=== PATIENT | female | born 1950 | race Caucasian/White ===

== ENCOUNTER 2018-06-21 10:26 | Outpatient (CLI) | payer BC, OTHER ==
--- NOTE | 2018-06-21 12:16 | RAD ---
CHEST TWO VIEWS: History: Dyspnea. Comparison: None. FINDINGS: Lungs are clear. No pneumothorax or effusion. Cardiac silhouette and mediastinal contours are within normal limits. Multiple calcified bodies project over the left lower quadrant of the abdomen. IMPRESSION: No acute intrathoracic abnormality. POS: TPC
== END 2018-06-21 10:27 | disposition home or self-care (01) ==
LOC: RAD 10:26
PROVIDERS: ATTEND Internal Medicine Critical Care Medicine
DX: R06.00 Dyspnea, unspecified (principal)
CPT/HCPCS: 71046

== ENCOUNTER 2019-05-09 09:28 | Outpatient (CLI) | payer BC ==
--- NOTE | 2019-05-09 10:13 | RAD ---
PA AND LATERAL VIEWS CHEST: Date: 05/09/2019 HISTORY: Dyspnea. FINDINGS: Comparison made with exam of 06/21/2018. The heart size is normal. The lungs are expanded without lobar consolidation, pneumothoraces, or pleu ral effusions. Mild chronic changes are stable. IMPRESSION: No acute process. POS: OFF
== END 2019-05-09 09:29 | disposition home or self-care (01) ==
LOC: RAD 09:28
PROVIDERS: ATTEND Internal Medicine Critical Care Medicine
DX: R06.00 Dyspnea, unspecified (principal)
CPT/HCPCS: 71046

== ENCOUNTER 2020-02-11 12:55 | Inpatient (IN) | payer BC, MEDICARE, OTHER ==
[2020-02-11] MEDS ORDERED: Iopamidol-370 76% 500 ML 1 ML ONE (13:37)
[2020-02-11] MEDS ORDERED: methylPREDNISolone Sod Succ/PF 125 MG/2 ML VIAL ONE (14:06)
--- NOTE | 2020-02-11 14:07 | RAD ---
Chest one view HISTORY: Dyspnea. COMPARISON: 05/09/2019. FINDINGS: Cardiac silhouette is magnified by projection. Pulmonary vasculature is unremarkable. Mediastinum is midline. Lungs remain slightly hyperinflated. Mild parenchymal scarring at the lung ba ses. No lobar consolidation or evidence of pneumothorax. Biapical pleural thickening. IMPRESSION : No active cardiopulmonary abnormalities are demonstrated.
[2020-02-11] MEDS ORDERED: Albuterol 200 PUFF (6.7GM INHALER) ONE (14:11)
[2020-02-11] MEDS ORDERED: Albuterol 200 PUFF (6.7GM INHALER) INH SCH (14:15)
[2020-02-11 14:31] LABS: #Lymphocytes 0.4 thou/uL (1.20-3.40); #Monocytes 0.4 thou/uL (0.11-0.59); #Neutrophils 4.9 thou/uL (1.40-6.50); %Basophils 0.2 % (0.0-1.0); %Eosinophils 0.1 % (0.0-10.0); %Monocytes 6.2 % (0.0-10.0); %Neutrophils 86.6 % (42.0-75.0); Hemoglobin 13.1 g/dL (12.0-16.0); Mean Corpuscular Hemoglobin 30.2 pg (27.0-31.0); Mean Corpuscular Volume 86.3 fL (78.0-98.0); Mean Platelet Volume 7.7 fL (7.4-10.4); Platelet Count 125 thou/uL (130-400); RBC Distribution Width 12.4 % (11.5-14.5); Red Blood Cell (RBC) Count 4.35 mill/uL (4.20-5.40); White Blood Cell (WBC) Count 5.6 thou/uL (4.8-10.8)
[2020-02-11 14:47] LABS: ALT (SGPT) 21 U/L (8-55); AST (SGOT) 21 U/L (5-34); Albumin 3.8 g/dL (3.4-4.8); Alkaline Phosphatase 72 U/L (40-110); Anion Gap 15 mmol/L (10-20); BUN (Urea Nitrogen) 18 mg/dL (9.8-20.1); Bilirubin, Total 0.3 mg/dL (0.2-1.2); Calc. Creatinine Clearance 0 mL/min (70-130); Calcium 8.4 mg/dL (7.8-10.44); Carbon Dioxide 20 mmol/L (23-31); Chloride 106 mmol/L (98-107); Estimated GFR-MDRD 72; Globulin 2.7 g/dL (2.4-3.5); Glucose 121 mg/dL (80-115); Potassium 3.6 mmol/L (3.5-5.1); Protein, Total 6.5 g/dL (6.0-8.3); Sodium 137 mmol/L (136-145)
[2020-02-11] MEDS ORDERED: Aspirin Chewable 81 MG TAB ONE (15:16)
--- NOTE | 2020-02-11 16:19 | CT ---
CT arteriogram chest with IV contrast and 3-D imaging HISTORY: Chest pain. Dyspnea. FINDINGS: There is good contrast opacification of the pulmonary arteries and thoracic aorta. There is calcification within the coronary arteries and other arterial structures. Prominent emphysematous changes are present at the lung apices with diffuse pulmonary hyperinflation and scattered interstitial scarring. No pleural fluid or pneumothorax. Slightly enlarged precarinal lymph node of the mediastinum is 1.5 cm greatest diameter. Subcarinal lymph node is 2.3 cm short axis diameter. Small hiatal hernia. IMPRESSION : No evidence of pulmonary embolus. Enlarged subcarinal lymph node. Cause is not evident. Emphysema. Atherosclerosis.
[2020-02-11 18:25] LABS: Troponin I Less than 0.010 ng/mL (< 0.028)
--- NOTE | 2020-02-11 18:25 | PDOC.FPRHP ---
- History of Present Illness Chief Complaint: dyspnea History of Present Illness: Pt is a 69 yo F with a PMH of COPD, GERD, RA, urge incontinence, chronic sinusitis who presents with worsening shortness of breath. She states earlier this week she was experiencing SOB and on Tuesday 02/[address] Venegas who gave her Levaquin and prednisone for a COPD exacerbation. She was compliant with her meds and she states she feels the same if not worse after finishing the course of medications. She says this does not feel like her "usual bronchitis". She also endorses the feeling of mucus or something being stuck in the back of her throat which she has been getting worked up outpatient, supposed to get an EGD. She has an occasional cough and will sometimes spit up a mucus plug but denies increased sputum production or cough. Denies CP, [place], fever, vision changes, wheezing, abdominal pain, edema. 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 ED Course: Albuterol, ASA, 500mL bolus, 125mg methylprednisolone Ddimer elevated at 1.95 CTA neg for PE, showed enlarged subcarinal lymph node, emphysema and atherosclerosis, hiatal hernia CXR negative - Allergies/Adverse Reactions Allergies Allergy/AdvReac Type Severity Reaction Status Date / Time azithromycin Allergy Verified 02/11/20 21:40 - Home Medications Medication Instructions Recorded Confirmed Type Cetirizine HCl [Zyrtec] 10 mg PO DAILY 02/11/20 02/11/20 History Fluticasone Furoate [Arnuity 1 inh PO DAILY 02/11/20 02/11/20 History Ellipta] Fluticasone/Vilanterol [Breo 1 inh PO DAILY 02/11/20 02/11/20 History Ellipta 200-25 Mcg INH] Folic Acid 1 mg PO DAILY 02/11/20 02/11/20 History Ipratropium/Albuterol Sulfate 1 puff INH QID-RT PRN 02/11/20 02/11/20 History [Combivent Respimat Inhal Panora] Lansoprazole [Prevacid 24Hr] 15 mg PO DAILY 02/11/20 02/11/20 History Methotrexate Sodium [Methotrexate] 2.5 mg PO Q7D 10/11/20 10/11/20 History - History PMHx: COPD, GERD, RA, urge incontinence, chronic sinusitis PSHx: denies FHx: sister- liver ca 2/2 cirrhosis, another sister with breast cancer Social: quit smoking 4 years ago; used to smoke 1/2-1ppd for 40 years. Denies alcohol or drug use - Review of Systems General: reports: fatigue. denies: fever/chills, weight/appetite/sleep changes, night sweats Eyes: denies: vision changes ENT: denies: nasal congestion Respiratory: reports: cough (occasional), shortness of breath, exercise intolerance Cardiovascular: denies: chest pain, edema Gastrointestinal: denies: nausea, vomiting, diarrhea, constipation, abdominal pain Genitourinary: denies: dysuria Skin: denies: rashes Neurological: reports: weakness. denies: numbness - Vital signs BP: 110/56 HR: 86 RR: 20 Tmax: 98 Pox: 93% on RA Wt: 68.49kg - Physical Exam Constitutional: NAD, awake, alert and oriented, well developed HEENT: normocephalic and atraumatic, EOMI Neck: supple Chest: no-tender to palpation Heart: RRR, normal S1/S2 (distant heart sounds), no murmurs/rubs/gallops, pulses present, no edema Lungs: no respiratory distress, good air movement, no wheezing, other (distant lung sounds) Abdomen: soft, non-tender Musculoskeletal: ROM grossly normal Neurological: no focal deficit Skin: no rash/lesions, good turgor, capillary refill <2 seconds Heme/Lymphatic: no unusual bruising or bleeding Psychiatric: normal mood and affect, good judgment and insight, intact recent and remote memory FMR H&P: Results - Labs Result Diagrams: 02/11/20 14:21 02/11/20 14:21 Lab results: WBC 5.6 thou/uL (4.8-10.8) 02/11/20 14:21 Hgb 13.1 g/dL (12.0-16.0) 02/11/20 14:21 Hct 37.5 % (36.0-47.0) 02/11/20 14:21 MCV 86.3 fL (78.0-98.0) 02/11/20 14:21 Plt Count 125 thou/uL (130-400) L 02/11/20 14:21 Neutrophils % 86.6 % (42.0-75.0) H 02/11/20 14:21 Sodium 137 mmol/L (136-145) 02/11/20 14:21 Potassium 3.6 mmol/L (3.5-5.1) 02/11/20 14:21 Chloride 106 mmol/L (98-107) 02/11/20 14:21 Carbon Dioxide 20 mmol/L (23-31) L 02/11/20 14:21 BUN 18 mg/dL (9.8-20.1) 02/11/20 14:21 Creatinine 0.80 mg/dL (0.6-1.1) 02/11/20 14:21 Glucose 121 mg/dL (80-115) H 02/11/20 14:21 Calcium 8.4 mg/dL (7.8-10.44) 02/11/20 14:21 Total Bilirubin 0.3 mg/dL (0.2-1.2) 02/11/20 14:21 AST 21 U/L (5-34) 02/11/20 14:21 ALT 21 U/L (8-55) 02/11/20 14:21 Alkaline Phosphatase 72 U/L (40-110) 02/11/20 14:21 B-Natriuretic Peptide 14.7 pg/mL (0-100) 02/11/20 14:21 Serum Total Protein 6.5 g/dL (6.0-8.3) 02/11/20 14:21 Albumin 3.8 g/dL (3.4-4.8) 02/11/20 14:21 - EKG Interpretation EKG: normal sinus. a single t wave inversion was appreciated in a lateral lead. FMR H&P: A/P - Plan #SOB 2/2 likely COPD exacerbation vs pulmonary HTN -increased work of breathing with history of COPD -failed treatment outpatient with Levaquin and steroids -CXR neg, CTA showed subcarinal lymph node, emphysema, atherosclerosis, hiatial hernia -satting well on RA -will treat with daily prednisone, albuterol q2 PRN, duonebs q4H ZHANG -work up for possible pulm HTN as cause of SOB; echo pending #GERD -aware, continue home meds #RA -aware, continue home meds #Urge incontinence -aware #Chronic sinusitis -aware, continue home meds PCP Kelly Dispo: admit to tele obs, anticipated LOS <48 hours Fluids: KVO Diet: HH DVT Ppx: Lovenox Code: DNR FMR H&P: Upper Level - Plan Date/Time: 02/11/201822 IAnam DO, have evaluated this patient and agree with findings/plan as outlined by director internal control resident. Pertinent changes/additions are listed here. 69 yo F presents with worsening FRYE. she reports noticing this starting a week ago, progressively worsening. treated for copd exac by pulm without improvement starting 5 days ago. denies dyspnea at rest, chest pain, cough or fever. no change in sputum production. does report a hx of orthopnea. no CELY or weight gain. her last copd exac was 6 mos ago which took her a while to get over, her copd is managed on ics/laba/lama. on exam she is not in acute distress, her PE is positive for distant heart and lung sounds but no wheeze, no jvd, fluid wave, or CELY. cxr significant for expanded lung david and lower lobe parenchyma scarring. labs sig for ddimer elevation. CTA neg. COPD exac is the most likely dx, will treat accordingly, currently no indication for abx. Additionally her symptoms and hx of lung dz/orthopnea could be due to a dx of pulm. htn, we will obtain echo to evaluate for this. She does not seem to be at risk for acute decompensation as her vital signs are stable at rest. she is a covid r/o 2/2 her sob. Tele obs for ELOS<48hrs. Addendum - Attending - Attending Attestation Date/Time: 02/11/20 [id number] I personally evaluated the patient and discussed the management with Dr. Mccollum I agree with the History, Examination, Assessment and Plan documented above with any addition or exceptions noted below- 69 yo F with h/o COPD, RA, GERD presents with worsening FRYE. she reports noticing this starting a week ago, progressively worsening. Seen by pulmonary and completed a course of prednisone and levaquin today without improvement in symptoms and worsening. Denies dyspnea at rest, chest pain, cough or fever. no change in sputum production. does report a hx of orthopnea. Denies any pedal edema or weight gain. PMH/PSH/Meds/SH reviewed and agree with resident's documentation. Afebrile BP 110/56 P86 RR20 93%RA Exam repeated by me and agree with resident's findings. Labs: WBC=5.6, H/H=13.3/37.5, Lnp=584, Bj=284, BUN/Cr=18/0.8, trop I<0.010 x 3, BNP=14.7, CT chest- no PE, enlarged subcarinal lymph node, emphysematous changes. A/P: 1) COPD exacerbation - Admit to medical. Duonebs q4h, continue steroids. Will check echo to evaluate for any cardiac etiologies for dyspnea. ]
[2020-02-11] MEDS ORDERED: Albuterol 200 PUFF (6.7GM INHALER) INH PRN ×3 (18:53→21:46)
[2020-02-11 20:48] LABS: Troponin I Less than 0.010 ng/mL (< 0.028)
[2020-02-11] MEDS ORDERED: Senokot S 8.6-50 MG TAB PO PRN (21:32)
[2020-02-11] MEDS ORDERED: Ondansetron PF 4 MG/2 ML Vial IVP PRN (21:32)
[2020-02-11] MEDS ORDERED: Ondansetron ODT 4 MG TAB PO PRN (21:32)
[2020-02-11] MEDS ORDERED: Acetaminophen 325 MG TAB PO PRN (21:32)
[2020-02-11 21:34] VITALS: BMI 24.4
[2020-02-11] MEDS ORDERED: Albuterol Sulfate 2.5 mg/3 ml Neb NEB PRN (21:34)
[2020-02-11] MEDS ORDERED: Non-Formulary Item 1 EACH (Ipratropium/Albuterol Sulfate [Combivent Respimat] 120 PUFF In INH PRN (22:24)
[2020-02-11] MEDS: Albuterol 200 PUFF (6.7GM INHALER) INH SCH (23:38)
[2020-02-11] MEDS: Methotrexate Sodium 2.5 MG TAB PO SCH (23:39)
[2020-02-12] MEDS: Albuterol 200 PUFF (6.7GM INHALER) INH SCH ×5 (03:21→19:36)
[2020-02-12 05:10] LABS: #Lymphocytes 0.4 thou/uL (1.20-3.40); #Monocytes 0.3 thou/uL (0.11-0.59); #Neutrophils 2.2 thou/uL (1.40-6.50); %Basophils 0.1 % (0.0-1.0); %Eosinophils 0.1 % (0.0-10.0); %Lymphocytes 14.2 % (21.0-51.0); %Monocytes 9.1 % (0.0-10.0); %Neutrophils 76.7 % (42.0-75.0); Hemoglobin 12.5 g/dL (12.0-16.0); Mean Corpuscular HGB CONC 34.5 g/dL (32.0-36.0); Mean Corpuscular Hemoglobin 29.7 pg (27.0-31.0); Mean Corpuscular Volume 86.1 fL (78.0-98.0); Mean Platelet Volume 7.4 fL (7.4-10.4); Platelet Count 131 thou/uL (130-400); RBC Distribution Width 12.3 % (11.5-14.5); Red Blood Cell (RBC) Count 4.19 mill/uL (4.20-5.40); White Blood Cell (WBC) Count 2.8 thou/uL (4.8-10.8)
[2020-02-12 05:42] LABS: ALT (SGPT) 19 U/L (8-55); AST (SGOT) 18 U/L (5-34); Albumin 3.7 g/dL (3.4-4.8); Alkaline Phosphatase 72 U/L (40-110); Anion Gap 14 mmol/L (10-20); BUN (Urea Nitrogen) 16 mg/dL (9.8-20.1); Bilirubin, Total 0.3 mg/dL (0.2-1.2); Calc. Creatinine Clearance 82 mL/min (70-130); Calcium 8.7 mg/dL (7.8-10.44); Carbon Dioxide 23 mmol/L (23-31); Cardiac Risk 3.4 (Less than 4.5); Chloride 106 mmol/L (98-107); Cholesterol 125 mg/dl (< 200 Desired); Estimated GFR-MDRD 81; Globulin 2.6 g/dL (2.4-3.5); Glucose 143 mg/dL (80-115); HDL Cholesterol 37 mg/dL (>60 Neg Risk); LDL Cholesterol, Calculated 75 mg/dL; Potassium 4.1 mmol/L (3.5-5.1); Protein, Total 6.3 g/dL (6.0-8.3); Sodium 139 mmol/L (136-145); Triglycerides 63 mg/dL (Less than 150)
[2020-02-12] MEDS: Mometasone 100 MCG/Formoterol 5 MCG 120 PUFF INHALER INH SCH ×2 (06:06→19:37)
--- NOTE | 2020-02-12 07:17 | PDOC.FM ---
- Subjective Subjective: Called to patient's room around 0730 this AM due to tachycardia. Patient experiencing associated symptoms of SOB, palpitations, anxiety, lightheaded. Initially felt some chest tightness which resolved by the time I arrived to evaluate her. She denies any past history of heart problems. Has never been diagnosed with atrial fibrillation in the past. Symptoms onset this AM after walking to the bathroom and using her albuterol and dulera inhalers. - Objective Vital Signs & Weight: Vital Signs (12 hours) Temp Pulse Resp BP Pulse Ox 02/12/20 03:47 98.5 F 90 16 130/60 91 L 02/11/20 23:25 98.0 F 74 18 114/72 93 L 02/11/20 20:10 98.0 F 82 18 108/57 L 91 L Weight Weight 68.583 kg I&O: 02/11/20 02/12/20 02/13/20 06:59 06:59 06:59 Intake Total 325 Output Total 300 Balance 25 Result Diagrams: 02/12/20 04:58 02/12/20 04:58 Phys Exam - Physical Examination anxious appearing HEENT: moist MMs Respiratory: no wheezing few bilateral crackles, mild tachypnea, SpO2 91% room air tachycardia, irregular, no murmur Gastrointestinal: soft, non-tender Musculoskeletal: no edema, pulses present Neurological: non-focal, moves all 4 limbs Psychiatric: A&O x 3 Skin: no rash Dx/Plan - Plan Plan: AFib with RVR New onset afib with RVR this morning, confirmed with EKG. Tachycardic in 150- 180s, symptomatic. Suspect respiratory disease, hypoxia as possible triggers for afib. - diltiazem 15 mg bolus - consulted cardiology, started 25 mcg digoxin - diltiazem gtt and therpeutic lovenox started by cardiology, appreciate recommendations - f/u echo when able to obtain COVID 19 Initially admitted for failed outpatient COPD exacerbation. Last tested negative one week prior to admission at her place of employment. Positive for COVID today. Likely trigger for both her COPD exacerbation and new onset afib. - placed on 2L NC during afib episode this am, titrate to goal of 94% - will check: ferritin, LDH, d-dimer, CRP, procalcitonin - switched prednisone to dexamethasone SOB 2/2 likely COPD exacerbation vs pulmonary HTN vs COVID pneumonia vs Afib Failed treatment outpatient with Levaquin and steroids. CXR neg, CTA showed subcarinal lymph node, emphysema, atherosclerosis, hiatial hernia - albuterol q2 PRN, duonebs q4H ZHANG - work up for possible pulm HTN as cause of SOB; echo pending Chronic sinusitis -aware, continue home meds PCP Kelly Dispo: inpatient pending further medical managment Fluids: KVO Diet: HH DVT Ppx: Lovenox Code: DNR
[2020-02-12 07:47] LABS: Free T4 (Free Thyroxine) 1.34 ng/dL (0.70-1.48)
[2020-02-12] MEDS ORDERED: predniSONE 20 MG TAB PO SCH (08:00)
[2020-02-12] MEDS ORDERED: Digoxin 0.5 MG/2 ML AMP SLOW IVP SCH (08:15)
[2020-02-12] MEDS: Loratadine 10 MG TAB PO SCH (08:27)
[2020-02-12] MEDS: Folic Acid 1 MG TAB PO SCH (08:27)
[2020-02-12 08:58] LABS: Troponin I 0.013 ng/mL (< 0.028)
[2020-02-12] MEDS ORDERED: Enoxaparin Sodium 40 MG/0.4 ML SYRINGE SC SCH (09:00)
[2020-02-12] MEDS ORDERED: Non-Formulary Item 1 EACH (Fluticasone Furoate [Arnuity Ellipta] 200 MCG Blst.W.Dev) PO SCH (09:00)
[2020-02-12] MEDS ORDERED: Diltiazem 125 MG in Sodium Chloride 0.9% 100 ML IVPB SCH (10:15)
[2020-02-12 11:20] LABS: SARS-CoV-2 MS2 Positive; SARS-CoV-2 N Gene Positive; SARS-CoV-2 S Gene Positive; SARS-CoV-2 by NAA DETECTED (NotDetected); SARS-CoV-2 orf1ab Positive
--- NOTE | 2020-02-12 12:15 | CON ---
DATE OF CONSULTATION: HISTORY OF PRESENT ILLNESS: Leta Arango is a 69-year-old female with history of COPD. 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 Last week, she was having increased problems with shortness of breath and saw Dr. Venegas on February 06 and was given Levaquin and prednisone. Her breathing problems continued to worsen and she came to the hospital for further treatment. This morning, she went into atrial fibrillation with fast ventricular response, rate in the 150s. She also states she had some mild chest pressure with this. She denies any previous history of palpitations. She is given diltiazem 15 mg and digoxin 0.25 mg and converted to sinus rhythm, although she continues to have intermittent runs of atrial fibrillation. PAST MEDICAL HISTORY: COPD and rheumatoid arthritis. She denies any history of hypertension, diabetes, or hypercholesterolemia. MEDICATIONS: 1. Zyrtec 10 mg daily. 2. Ellipta one puff daily. 3. Folic acid 1 mg daily. 4. Combivent inhaler one puff q.i.d. p.r.n. 5. Prevacid 15 mg daily. 6. Methotrexate 2.5 mg q.7 days. ALLERGIES: AZITHROMYCIN. SOCIAL HISTORY: She smoked one-half to one and one-half packs per day for 40 years, but stopped four years ago. She does not drink. REVIEW OF SYSTEMS: Unremarkable. PHYSICAL EXAMINATION: VITAL SIGNS: Blood pressure 130/60 and pulse of 90. Physical exam was deferred due to COVID rule out. LABORATORY DATA: EKG revealed atrial fibrillation with rate of 153 per minute with [address]-segment depression V2 through V5 with normal baseline ST segments. White count 2800, hemoglobin 12.5, hematocrit 36.1, and platelets 131,000. D-dimer 1.95. Sodium 139, potassium 4.1, chloride 106, carbon dioxide 23, BUN 16, creatinine 0.72, and glucose 143. Cholesterol 125, triglyceride 63, HDL 37, and LDL 75. TSH is low at 0.1801. However, free T4 and free T3 are normal. Troponin I is normal x4. Chest CTA revealed no evidence of pulmonary embolism. COPD and atherosclerosis. IMPRESSION: 1. New onset atrial fibrillation in the setting of probable chronic obstructive pulmonary disease exacerbation. Her CHADS-VASc score is 2 and I will start her on therapeutic Lovenox and a Cardizem drip. 2. Chronic obstructive pulmonary disease exacerbation. 3. COVID rule out. 4. Rheumatoid arthritis. 5. Former smoker. 6. Gastroesophageal reflux disease. PLAN: She was placed on Cardizem drip 5 mg/hour. Also, she will be placed on Lovenox 1 mg/kg b.i.d. due to CHADS-VASc score of 2. Also with the ST-segment depression during her tachycardia, consideration should be given to further evaluation of possible coronary artery disease in the future. Once she has ruled out COVID, echocardiogram will be performed. Job ID: [id number]
[2020-02-12] MEDS ORDERED: Dexamethasone 20 MG/5 ML VIAL SLOW IVP SCH (13:30)
[2020-02-12 13:56] LABS: Actual Bicarbonate (HCO3a) 18.5 mEq/L (22-28); Base Excess (BEa) -4.3 mEq/L (-2.0 to +3.0); CO2 Tension 27.6 mmHg (35.0-45.0); Calcium, Ionized (arterial) 1.18 mmol/L (1.12-1.30); Carboxyhemoglobin (COHb) 0.1 gm% (0.0-3.0); Hemoglobin (Hb) 12.6 g/dL (12.0-16.0); O2 Tension (PaO2), arterial 72.2 mmHg (> 80.0); pH, Arterial 7.44 (7.35-7.45)
--- NOTE | 2020-02-12 13:56 | PRG ---
DATE OF SERVICE: 02/12/2020 Ms. Arango is a pleasant 69-year-old lady, who was admitted with an exacerbation of COPD as well as COVID positivity. This morning, she went into atrial fibrillation with a rapid ventricular response. We consulted Cardiology and she is currently on a Cardizem drip. She did have some EKG changes and Cardiology has suggested further workup for possible CAD. Once her COVID has been ruled in or out, we should proceed with a stress Myoview. She is also on Lovenox, given her CHADS-VASc score of 2. Also after COVID is ruled in or out, she will undergo echocardiogram. Job ID: [id number]
[2020-02-12] MEDS ORDERED: Dexamethasone 4 mg/ml Vial SLOW IVP SCH (14:00)
[2020-02-12 14:14] LABS: Puncture Site RBA
[2020-02-12] MEDS: Enoxaparin Sodium 80 MG/0.8 ML SYRINGE SC SCH (20:43)
[2020-02-12] MEDS: Dexamethasone 4 mg/ml Vial SLOW IVP SCH (20:43)
[2020-02-13] MEDS: Albuterol 200 PUFF (6.7GM INHALER) INH SCH ×7 (00:31→23:19)
[2020-02-13 05:31] LABS: #Lymphocytes 0.5 thou/uL (1.20-3.40); #Monocytes 0.2 thou/uL (0.11-0.59); #Neutrophils 3.2 thou/uL (1.40-6.50); %Basophils 0.2 % (0.0-1.0); %Lymphocytes 12.8 % (21.0-51.0); %Monocytes 5.8 % (0.0-10.0); %Neutrophils 81.2 % (42.0-75.0); Hemoglobin 12.6 g/dL (12.0-16.0); Mean Corpuscular HGB CONC 34.6 g/dL (32.0-36.0); Mean Corpuscular Hemoglobin 29.9 pg (27.0-31.0); Mean Corpuscular Volume 86.5 fL (78.0-98.0); Platelet Count 147 thou/uL (130-400); RBC Distribution Width 12.4 % (11.5-14.5); Red Blood Cell (RBC) Count 4.21 mill/uL (4.20-5.40); White Blood Cell (WBC) Count 3.9 thou/uL (4.8-10.8)
[2020-02-13 05:37] LABS: INR-International Normal Ratio 0.9; PTT 28.6 sec (22.9-36.1); Prothrombin Time 12.2 sec (12.0-14.7)
[2020-02-13 05:38] LABS: D-Dimer Test 0.99 *mcg/mL (0.27-0.43)
[2020-02-13 05:50] LABS: ALT (SGPT) 27 U/L (8-55); AST (SGOT) 26 U/L (5-34); Albumin 3.6 g/dL (3.4-4.8); Alkaline Phosphatase 72 U/L (40-110); Anion Gap 15 mmol/L (10-20); BUN (Urea Nitrogen) 16 mg/dL (9.8-20.1); Bilirubin, Total 0.3 mg/dL (0.2-1.2); CRP (Inflammatory) 3.46 mg/dL (= or < 0.5); Calc. Creatinine Clearance 83 mL/min (70-130); Calcium 8.6 mg/dL (7.8-10.44); Carbon Dioxide 20 mmol/L (23-31); Chloride 106 mmol/L (98-107); Estimated GFR-MDRD 82; Globulin 2.7 g/dL (2.4-3.5); Glucose 159 mg/dL (80-115); Potassium 4.1 mmol/L (3.5-5.1); Protein, Total 6.3 g/dL (6.0-8.3); Sodium 137 mmol/L (136-145)
--- NOTE | 2020-02-13 06:27 | PDOC.FM ---
- Subjective Subjective: Patient was resting comfortably in bed, finishing her breakfast, at the time of evaluation. She denied any acute overnight events, particularly with regard to chest pain, palpitations, SOB, N/V or worsening cough. - Objective Vital Signs & Weight: Vital Signs (12 hours) Temp Pulse Resp BP Pulse Ox 02/13/20 04:40 98.0 F 66 18 91/53 L 96 02/13/20 01:08 98.8 F 76 18 117/56 L 94 L 02/12/20 21:00 98.6 F 73 20 107/59 L 94 L Weight Weight 68.583 kg I&O: 02/11/20 02/12/20 02/13/20 06:59 06:59 06:59 Intake Total 325 Output Total 300 500 Balance 25 -500 Result Diagrams: 02/13/20 04:49 02/13/20 04:49 Phys Exam - Physical Examination Constitutional: NAD HEENT: moist MMs, oral pharynx no lesions Neck: supple, full ROM Respiratory: no wheezing, no rales, no rhonchi, clear to auscultation bilateral Cardiovascular: RRR, no significant murmur, no rub Gastrointestinal: soft, non-tender, no distention, positive bowel sounds Musculoskeletal: no edema, pulses present Neurological: non-focal, moves all 4 limbs Psychiatric: normal affect Dx/Plan (1) COVID-19 Code(s): U07.1 - COVID-19 Status: Acute (2) COPD (chronic obstructive pulmonary disease) Status: Acute (3) Rheumatoid arthritis Code(s): M06.9 - RHEUMATOID ARTHRITIS, UNSPECIFIED Status: Acute (4) GERD (gastroesophageal reflux disease) Code(s): K21.9 - GASTRO-ESOPHAGEAL REFLUX DISEASE WITHOUT ESOPHAGITIS Status: Acute (5) A-fib Code(s): I48.91 - UNSPECIFIED ATRIAL FIBRILLATION Status: Acute - Plan Plan: Patient is a 69 y/o female with a PMH significant for COPD who presented to the hospital for evaluation of SOB. 1. SOB 2/2 COPD Exacerbation vs Pulmonary HTN vs COVID Pneumonia vs New-Onset A- Fib -Symptoms present for ~1W - failed outpatient treatment of Levofloxacin and steroids -VSS w/o new O2 requirement -CXR: NAF -CTA: Subcarinal LAD, Emphysema, Atherosclerosis, Hiatial Hernia -Previously on Prednisone - transitioned to Dexamethasone following COVID(+) -Duonebs Q4H ZHANG, Albuterol Q2H PRN -Echo: Pending 2. COVID(+) -Possible trigger for #1 and #3 -D-Dimer: 1.95 > 0.99 -Ferritin: 362 -LDH: 289 -CRP: 3.46 -Procal: 0.03 -Will monitor vital signs closely due to multiple high-risk comorbidities -See #1 3. A-Fib w/ RVR -New-onset on 02/11 - initially tachycardic in the 150-180s, s/p Diltiazem 15 mg bolus -Cardiology: Consulted, recommended Digoxin 25 mcg x1, Diltiazem gtt and Th. Lovenox -Echo: Pending 4. Rheumatoid Arthritis -Will continue home medication regimen 5. Chronic Sinusitis -Will continue home medication regimen 6. GERD -Will continue home medication regimen Code: DNR PCP Jay ([facility]) Diet: Heart Healthy w/ Low Sodium Activity: Ad marii VTE PPx: Th. Lovenox GI PPx: Protonix Dispo: Patient is currently stable and admitted to the Telemetry Floor for ongoing work-up of SOB. Etiology of patient's current symptoms are likely multi- factorial. Will continue rate control for New-Onset A-Fib w/ RVR as per above and coordinate closely with Cardiology - Echo may be delayed by patient's COVID(+) status. Will otherwise continue steroid regimen and respiratory support as per above. Expected LOS > 48H.
[2020-02-13] MEDS: Mometasone 100 MCG/Formoterol 5 MCG 120 PUFF INHALER INH SCH ×2 (06:39→17:38)
[2020-02-13] MEDS: Dexamethasone 4 mg/ml Vial SLOW IVP SCH ×2 (07:52→19:46)
[2020-02-13] MEDS: Enoxaparin Sodium 80 MG/0.8 ML SYRINGE SC SCH (07:53)
[2020-02-13] MEDS: Folic Acid 1 MG TAB PO SCH (07:53)
[2020-02-13] MEDS: Loratadine 10 MG TAB PO SCH (07:53)
--- NOTE | 2020-02-13 09:03 | EKG ---
Test Reason : Blood Pressure : / mmHG Vent. Rate : 153 BPM Atrial Rate : 107 BPM P-R Int : 000 ms QRS Dur : 080 ms QT Int : 280 ms P-R-T Axes : 000 021 223 degrees QTc Int : 447 ms Atrial fibrillation with rapid ventricular response Posterior infarct , age undetermined Marked ST abnormality, possible inferior subendocardial injury Abnormal ECG When compared with ECG of 11-FEB-2020 14:36, (Unconfirmed) Atrial fibrillation has replaced Sinus rhythm Vent. rate has increased BY [address] now depressed in Lateral leads T wave inversion now evident in Lateral leads Confirmed by DR. Placido MEANS ([id number]) on 02/13/2020 9:03:39 AM Referred By: REHG Confirmed By:DR. Placido MEANS
--- NOTE | 2020-02-13 14:05 | PRG ---
DATE OF SERVICE: 02/13/2020 I have reviewed the daily note of Dr. Thien Whitfield and agree with his assessment and plan. Job ID: [id number]
[2020-02-13] MEDS: Apixaban 5 MG TAB PO SCH (19:46)
[2020-02-14] MEDS: Albuterol 200 PUFF (6.7GM INHALER) INH SCH ×6 (02:42→22:30)
--- NOTE | 2020-02-14 05:50 | PDOC.FM ---
- Subjective Subjective: Patient was resting comfortably in bed at the time of evaluation. Patient denied any acute overnight events, but did endorse moderate FRYE that resolved with rest. Patient denied any chest pain, palpitations, N/V or ABD Pain. Per review of patient's rhythm strip, patient did not have any repeat episode of A-Fib w/ RVR. - Objective Vital Signs & Weight: Vital Signs (12 hours) Temp Pulse Resp BP Pulse Ox 02/14/20 05:07 93 L 02/14/20 04:16 97.9 F 71 22 H 129/61 93 L 02/13/20 23:19 97.9 F 79 24 H 132/76 94 L 02/13/20 19:46 98.4 F 77 20 113/64 94 L Weight Weight 68.583 kg I&O: 02/12/20 02/13/20 02/14/20 06:59 06:59 06:59 Intake Total 325 1470 Output Total 300 500 800 Balance 25 -500 670 Result Diagrams: 02/14/20 04:59 02/14/20 04:59 Phys Exam - Physical Examination Constitutional: NAD HEENT: moist MMs, oral pharynx no lesions Neck: supple, full ROM Respiratory: no wheezing, no rales, no rhonchi, clear to auscultation bilateral Cardiovascular: RRR, no significant murmur, no rub Gastrointestinal: soft, non-tender, no distention, positive bowel sounds Musculoskeletal: no edema, pulses present Neurological: non-focal, moves all 4 limbs Psychiatric: normal affect Skin: no rash Dx/Plan (1) COVID-19 Code(s): U07.1 - COVID-19 Status: Acute (2) COPD (chronic obstructive pulmonary disease) Status: Acute (3) Rheumatoid arthritis Code(s): M06.9 - RHEUMATOID ARTHRITIS, UNSPECIFIED Status: Acute (4) GERD (gastroesophageal reflux disease) Code(s): K21.9 - GASTRO-ESOPHAGEAL REFLUX DISEASE WITHOUT ESOPHAGITIS Status: Acute (5) A-fib Code(s): I48.91 - UNSPECIFIED ATRIAL FIBRILLATION Status: Acute - Plan Plan: Patient is a 69 y/o female with a PMH significant for COPD who presented to the hospital for evaluation of SOB. 1. SOB 2/2 COPD Exacerbation vs Pulmonary HTN vs COVID Pneumonia vs New-Onset A- Fib -Symptoms present for ~1W - failed outpatient treatment of Levofloxacin and steroids -VSS w/o new O2 requirement -CXR: NAF -CTA: Subcarinal LAD, Emphysema, Atherosclerosis, Hiatial Hernia -Previously on Prednisone - transitioned to Dexamethasone following COVID(+) -Duonebs Q4H ZHANG, Albuterol Q2H PRN -Will receive Echo as an outpatient 2. COVID(+) -Possible trigger for #1 and #3 -D-Dimer: 1.95 > 0.99 -Ferritin: 362 -LDH: 289 -CRP: 3.46 -Procal: 0.03 -Will monitor vital signs closely due to multiple high-risk comorbidities -See #1 3. A-Fib w/ RVR -New-onset on 02/11 - initially tachycardic in the 150-180s, s/p Diltiazem 15 mg bolus -Cardiology: Consulted, recommended Digoxin 25 mcg x1, Diltiazem gtt and Th. Lovenox - transitioned to PO Diltiazem and Apixaban -Will receive Echo as an outpatient 4. Rheumatoid Arthritis -Will continue home medication regimen 5. Chronic Sinusitis -Will continue home medication regimen 6. GERD -Will continue home medication regimen Code: DNR PCP Jay ([facility]) Diet: Heart Healthy w/ Low Sodium Activity: Ad marii VTE PPx: Th. Lovenox GI PPx: Protonix Dispo: Patient is currently stable and admitted to the Telemetry Floor for ongoing work-up of SOB. Etiology of patient's current symptoms are likely multi- factorial. Will continue rate control for New-Onset A-Fib w/ RVR as per above and coordinate closely with Cardiology for hopeful DC this afternoon. Will otherwise continue steroid regimen and respiratory support as per above until DC. Expected LOS < 24H.
[2020-02-14 06:11] LABS: #Lymphocytes 0.6 thou/uL (1.20-3.40); #Monocytes 0.3 thou/uL (0.11-0.59); #Neutrophils 3.3 thou/uL (1.40-6.50); %Basophils 0.2 % (0.0-1.0); %Eosinophils 0.3 % (0.0-10.0); %Lymphocytes 13.1 % (21.0-51.0); %Monocytes 6.7 % (0.0-10.0); %Neutrophils 79.6 % (42.0-75.0); Mean Corpuscular HGB CONC 34.3 g/dL (32.0-36.0); Mean Corpuscular Hemoglobin 29.2 pg (27.0-31.0); Mean Corpuscular Volume 85.2 fL (78.0-98.0); Mean Platelet Volume 8.1 fL (7.4-10.4); Platelet Count 157 thou/uL (130-400); RBC Distribution Width 12.3 % (11.5-14.5); Red Blood Cell (RBC) Count 4.44 mill/uL (4.20-5.40); White Blood Cell (WBC) Count 4.2 thou/uL (4.8-10.8)
[2020-02-14 06:36] LABS: ALT (SGPT) 42 U/L (8-55); AST (SGOT) 29 U/L (5-34); Albumin 3.7 g/dL (3.4-4.8); Alkaline Phosphatase 79 U/L (40-110); Anion Gap 10 mmol/L (10-20); BUN (Urea Nitrogen) 18 mg/dL (9.8-20.1); Bilirubin, Total 0.4 mg/dL (0.2-1.2); Calc. Creatinine Clearance 80 mL/min (70-130); Calcium 8.7 mg/dL (7.8-10.44); Carbon Dioxide 26 mmol/L (23-31); Chloride 105 mmol/L (98-107); Estimated GFR-MDRD 78; Globulin 2.8 g/dL (2.4-3.5); Glucose 170 mg/dL (80-115); Potassium 4.1 mmol/L (3.5-5.1); Protein, Total 6.5 g/dL (6.0-8.3); Sodium 137 mmol/L (136-145)
[2020-02-14] MEDS: Mometasone 100 MCG/Formoterol 5 MCG 120 PUFF INHALER INH SCH ×2 (06:49→18:30)
[2020-02-14] MEDS: Dexamethasone 4 mg/ml Vial SLOW IVP SCH ×2 (08:38→20:03)
[2020-02-14] MEDS: Loratadine 10 MG TAB PO SCH (08:39)
[2020-02-14] MEDS: Apixaban 5 MG TAB PO SCH ×2 (08:39→20:03)
[2020-02-14] MEDS: Folic Acid 1 MG TAB PO SCH (08:39)
--- NOTE | 2020-02-14 13:52 | PRG ---
DATE OF SERVICE: 02/14/2020 I have examined the patient and discussed the case with Dr. Thien Whitfield. I have also read his note and agree with his assessment plan. Ms. Arango is resting comfortably in bed, in no distress. She is currently being treated for a COPD exacerbation, COVID pneumonia, atrial fibrillation with RVR, which is currently quiescent. She has been transitioned to p.o. medications for her atrial fib. Job ID: [id number]
[2020-02-15] MEDS: Albuterol 200 PUFF (6.7GM INHALER) INH SCH ×3 (02:30→10:45)
[2020-02-15 05:24] LABS: #Lymphocytes 0.7 thou/uL (1.20-3.40); #Monocytes 0.3 thou/uL (0.11-0.59); #Neutrophils 5.4 thou/uL (1.40-6.50); %Basophils 0.5 % (0.0-1.0); %Eosinophils 0.2 % (0.0-10.0); %Lymphocytes 11.1 % (21.0-51.0); %Monocytes 5.2 % (0.0-10.0); Hemoglobin 13.2 g/dL (12.0-16.0); Mean Corpuscular HGB CONC 34.7 g/dL (32.0-36.0); Mean Corpuscular Hemoglobin 29.3 pg (27.0-31.0); Mean Corpuscular Volume 84.4 fL (78.0-98.0); Mean Platelet Volume 7.5 fL (7.4-10.4); Platelet Count 183 thou/uL (130-400); RBC Distribution Width 12.3 % (11.5-14.5); White Blood Cell (WBC) Count 6.5 thou/uL (4.8-10.8)
--- NOTE | 2020-02-15 05:35 | PDOC.FM ---
- Subjective Subjective: Patient was resting in bed at the time of evaluation. She continued to require supplemental O2, and complained of extreme SOB with exertion, but was otherwise stable at rest. - Objective Vital Signs & Weight: Vital Signs (12 hours) Temp Pulse Resp BP Pulse Ox 02/15/20 05:00 98.1 F 62 18 125/67 98 02/14/20 20:00 97.9 F 71 18 138/70 97 Weight Weight 68.583 kg I&O: 02/13/20 02/14/20 02/15/20 06:59 06:59 06:59 Intake Total 2030 251 Output Total 500 1400 1000 Balance -500 197 -739 Result Diagrams: 02/15/20 05:08 02/15/20 05:08 Phys Exam - Physical Examination Constitutional: NAD HEENT: moist MMs, oral pharynx no lesions Neck: supple, full ROM Respiratory: no wheezing, no rales, no rhonchi, clear to auscultation bilateral Mild tachypnea w/ 2L O2 via Nasal Cannula Cardiovascular: RRR, no significant murmur, no rub Gastrointestinal: soft, non-tender, no distention, positive bowel sounds Musculoskeletal: no edema, pulses present Neurological: non-focal, moves all 4 limbs Psychiatric: normal affect Skin: no rash Dx/Plan (1) COVID-19 Code(s): U07.1 - COVID-19 Status: Acute (2) COPD (chronic obstructive pulmonary disease) Status: Acute (3) Rheumatoid arthritis Code(s): M06.9 - RHEUMATOID ARTHRITIS, UNSPECIFIED Status: Acute (4) GERD (gastroesophageal reflux disease) Code(s): K21.9 - GASTRO-ESOPHAGEAL REFLUX DISEASE WITHOUT ESOPHAGITIS Status: Acute (5) A-fib Code(s): I48.91 - UNSPECIFIED ATRIAL FIBRILLATION Status: Acute - Plan Plan: Patient is a 69 y/o female with a PMH significant for COPD who presented to the hospital for evaluation of SOB. 1. SOB 2/2 COPD Exacerbation vs Pulmonary HTN vs COVID Pneumonia vs New-Onset A- Fib -Symptoms present for ~1W - failed outpatient treatment of Levofloxacin and steroids -VSS although patient has a new O2 requirement of 2L via Nasal Cannula -CXR: NAF -CTA: Subcarinal LAD, Emphysema, Atherosclerosis, Hiatial Hernia -Previously on Prednisone - transitioned to Dexamethasone following COVID(+) -Dulera BID ZHANG, Albuterol Q2H PRN -Will receive Echo, Stress Test as an outpatient 2. COVID(+) -Possible trigger for #1 and #3 -D-Dimer: 1.95 > 0.99 -Ferritin: 362 -LDH: 289 -CRP: 3.46 -Procal: 0.03 -Will monitor vital signs closely due to multiple high-risk comorbidities -See #1 3. A-Fib w/ RVR -New-onset on 02/11 - initially tachycardic in the 150-180s, s/p Diltiazem 15 mg bolus -Cardiology: Consulted, recommended Digoxin 25 mcg x1, Diltiazem gtt and Th. Lovenox - transitioned to PO Diltiazem and Apixaban -Will receive Echo, Stress Test as an outpatient 4. Rheumatoid Arthritis -Will continue home medication regimen 5. Chronic Sinusitis -Will continue home medication regimen 6. GERD -Will continue home medication regimen Code: DNR PCP Jay ([facility]) Diet: Heart Healthy w/ Low Sodium Activity: Ad marii VTE PPx: Th. Lovenox GI PPx: Protonix Dispo: Patient is currently stable and admitted to the Telemetry Floor for ongoing treatment of COVID-19 superimposed on COPD Exacerbation. Will continue rate control for New-Onset A-Fib w/ RVR as per above and coordinate closely with Cardiology. Due to patient's continued need for supplemental O2, DC appears unlikely - will titrate O2 as tolerated and continue with steroids and Albuterol. Will contact RT to investigate supplementation with Tiotropium. Expected LOS > 24H.
[2020-02-15 06:03] LABS: ALT (SGPT) 76 U/L (8-55); AST (SGOT) 36 U/L (5-34); Albumin 3.8 g/dL (3.4-4.8); Alkaline Phosphatase 85 U/L (40-110); Anion Gap 12 mmol/L (10-20); BUN (Urea Nitrogen) 22 mg/dL (9.8-20.1); Bilirubin, Total 0.4 mg/dL (0.2-1.2); Calc. Creatinine Clearance 82 mL/min (70-130); Calcium 8.8 mg/dL (7.8-10.44); Carbon Dioxide 24 mmol/L (23-31); Chloride 104 mmol/L (98-107); Estimated GFR-MDRD 81; Globulin 2.9 g/dL (2.4-3.5); Glucose 168 mg/dL (80-115); Potassium 4.2 mmol/L (3.5-5.1); Protein, Total 6.7 g/dL (6.0-8.3); Sodium 136 mmol/L (136-145)
[2020-02-15] MEDS: Mometasone 100 MCG/Formoterol 5 MCG 120 PUFF INHALER INH SCH (06:30)
[2020-02-15] MEDS: Dexamethasone 4 mg/ml Vial SLOW IVP SCH ×2 (07:57→20:00)
[2020-02-15] MEDS: Folic Acid 1 MG TAB PO SCH (07:57)
[2020-02-15] MEDS: Loratadine 10 MG TAB PO SCH (07:57)
[2020-02-15] MEDS: Apixaban 5 MG TAB PO SCH ×2 (07:57→20:00)
--- NOTE | 2020-02-15 14:27 | PRG ---
DATE OF SERVICE: 02/15/2020 Ms. Leta Arango is still being treated for COVID and COPD exacerbation likely secondary to COVID. She remains clinically stable without great improvement for the last several days. In fact, her oxygen needs has been slightly increased. We may recheck with ID regarding further recommendations, but for now, we will continue to give supportive care and O2. Job ID: [id number]
[2020-02-15] MEDS ORDERED: REMDESIVIR (EUA) 100 MG in Sodium Chloride 0.9% 250 ML 230 ML IV SCH (16:00)
[2020-02-15] MEDS: Ipratropium/Albuterol Sulfate 4 GM AER IH SCH ×2 (16:00→20:00)
[2020-02-15] MEDS ORDERED: REMDESIVIR (EUA) 200 MG in Sodium Chloride 0.9% 250 ML 210 ML IV SCH (16:00)
[2020-02-15] MEDS ORDERED: Mometasone 200 MCG/Formoterol 5 MCG 120 PUFF INHALER INH SCH (18:30)
[2020-02-15] MEDS: Mometasone 200 MCG/Formoterol 5 MCG 120 PUFF INHALER INH SCH (19:47)
--- NOTE | 2020-02-15 22:17 | CON ---
DATE OF CONSULTATION: 02/15/2020 REASON FOR CONSULTATION: COVID pneumonia. HISTORY OF PRESENT ILLNESS: A 69-year-old patient of Dr. Venegas with a history of COPD and rheumatoid arthritis, who has been sick with worsening shortness of breath for the past 7 days approximately, treated with steroids and Levaquin without improvement and had a negative COVID test though on Wednesday. Because of persistence of symptoms, she came to the emergency room. On arrival, temperature 97.6, O2 saturation 92 on room air. Diminished breath sounds, but no crackles or wheezing. Heart exam normal. Abdomen soft. Neuro examination nonfocal. This time, the COVID PCR was positive. This is a week after the 1st one. She is now feeling dyspneic at rest. Denies headaches. No diarrhea. No vomiting. Loss of smell. No genitourinary symptoms. No joint symptoms. No neurological symptoms. PAST MEDICAL HISTORY: Includes COPD, rheumatoid arthritis. PAST SURGICAL HISTORY: Tubal ligation. ALLERGIES: AZITHROMYCIN. MEDICATIONS: Had been on: 1. Methotrexate. 2. Folic acid. 3. Combivent. 4. Ascensia. 5. Arnuity Ellipta inhaler. 6. Pantoprazole. 7. Zyrtec. 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 Quit smoking 2 years ago. CURRENT MEDICATIONS: She is receivin. Decadron. 2. Eliquis. 3. Methotrexate. 4. Remdesivir. 5. She is going to get convalescent plasma. PHYSICAL EXAMINATION: VITAL SIGNS: T-max 98, BP 120/70, heart rate 82, respiratory rate 22, O2 saturation 94 with 2 L, increased to 3.5 L and it went up to 96. GENERAL: She appears apprehensive, tachypneic. SKIN: Normal. She has a peripheral IV access. She is voiding in the toilet. No lymphadenopathy. No jugular vein distention. LUNGS: With a few scattered inspiratory crackles. No wheezing. HEART: S1, S2. Regular rate. No S3 or S4. ABDOMEN: Soft. Not distended or tender. No ascites. No bladder distention. EXTREMITIES: No joint inflammatory activity. No edema. Moves extremities equally. Pulses 1+ in dorsalis pedis. NEUROLOGIC: Cognitive function appears to be intact. LABORATORY DATA: White cell count is 6.5, hemoglobin 13, platelets 183 with 83% neutrophils. INR was 0.9. A pH of 7.44, pCO2 27, PO2 72. Sodium 136, creatinine 0.72, GFR 81, AST 36, ALT 76, alkaline phosphatase 85. COVID positive. IMAGING STUDIES: Chest x-ray and the CT angio did not show any actual infiltrates. ASSESSMENT: 1. Chronic obstructive pulmonary disease. 2. Rheumatoid arthritis. 3. Coronavirus disease pneumonia with O2 requirement and tachypnea. PLAN: We will go ahead and continue Decadron, remdesivir, and transfuse convalescent plasma. Monitor inflammatory markers daily. Job ID: [id number]
[2020-02-16 05:17] LABS: ALT (SGPT) 74 U/L (8-55); AST (SGOT) 23 U/L (5-34); Albumin 3.6 g/dL (3.4-4.8); Alkaline Phosphatase 83 U/L (40-110); Bilirubin, Direct 0.2 mg/dL (0.1-0.3); Bilirubin, Total 0.4 mg/dL (0.2-1.2); Protein, Total 6.5 g/dL (6.0-8.3)
[2020-02-16] MEDS: Mometasone 200 MCG/Formoterol 5 MCG 120 PUFF INHALER INH SCH ×2 (06:02→18:36)
[2020-02-16] MEDS: Ipratropium/Albuterol Sulfate 4 GM AER IH SCH ×4 (06:02→21:36)
--- NOTE | 2020-02-16 06:13 | PDOC.FM ---
- Subjective Subjective: Patient was resting in bed at the time of evaluation, finishing her breafast. Patient continues to endorse SOB and FRYE, but otherwise has no significant complaints. Per chart review, patient's supplemental O2 requirement has increased from 2L via Nasal Cannula to 3L via Nasal Cannula. - Objective Vital Signs & Weight: Vital Signs (12 hours) Temp Pulse Resp BP Pulse Ox 02/16/20 04:00 98.0 F 63 19 124/61 97 02/15/20 23:38 62 20 128/70 96 02/15/20 20:08 98.9 F 70 22 H 124/66 97 Weight Weight 68.583 kg I&O: 02/14/20 02/15/20 02/16/20 06:59 06:59 06:59 Intake Total 2030 251 970 Output Total 1400 1000 1350 Balance 061 -739 -758 Result Diagrams: 02/15/20 05:08 02/15/20 05:08 Phys Exam - Physical Examination Constitutional: NAD Mild tachypnea HEENT: moist MMs, oral pharynx no lesions Neck: supple, full ROM Respiratory: no wheezing, no rales, no rhonchi, clear to auscultation bilateral Mild tachypnea Cardiovascular: RRR, no significant murmur, no rub Gastrointestinal: soft, non-tender, no distention, positive bowel sounds Musculoskeletal: no edema, pulses present Neurological: non-focal, moves all 4 limbs Psychiatric: normal affect Skin: no rash Dx/Plan (1) COVID-19 Code(s): U07.1 - COVID-19 Status: Acute (2) COPD (chronic obstructive pulmonary disease) Status: Acute (3) Rheumatoid arthritis Code(s): M06.9 - RHEUMATOID ARTHRITIS, UNSPECIFIED Status: Acute (4) GERD (gastroesophageal reflux disease) Code(s): K21.9 - GASTRO-ESOPHAGEAL REFLUX DISEASE WITHOUT ESOPHAGITIS Status: Acute (5) A-fib Code(s): I48.91 - UNSPECIFIED ATRIAL FIBRILLATION Status: Acute - Plan Plan: Patient is a 69 y/o female with a PMH significant for COPD who presented to the hospital for evaluation of SOB. 1. SOB 2/2 COPD Exacerbation vs Pulmonary HTN vs COVID Pneumonia vs New-Onset A- Fib -Symptoms present for ~1W - failed outpatient treatment of Levofloxacin and steroids -VSS although patient has a new O2 requirement of 3L via Nasal Cannula -CXR: NAF -CTA: Subcarinal LAD, Emphysema, Atherosclerosis, Hiatial Hernia -Previously on Prednisone - transitioned to Dexamethasone following COVID(+) -Dulera BID ZHANG, Combivent ZHANG, Albuterol Q2H PRN -Will receive Echo, Stress Test as an outpatient 2. COVID(+) -Possible trigger for #1 and #3 -D-Dimer: 1.95 > 0.99 -Ferritin: 362 -LDH: 289 -CRP: 3.46 -Procal: 0.03 -Will monitor vital signs closely due to multiple high-risk comorbidities -Dr. Garcia (ID): Consulted - recommended Remdesivir (02/14) and Convalescent Plasma - will confirm Plasma administration today -See #1 3. A-Fib w/ RVR -New-onset on 02/11 - initially tachycardic in the 150-180s, s/p Diltiazem 15 mg bolus -Cardiology: Consulted, recommended Digoxin 25 mcg x1, Diltiazem gtt and Th. Lovenox - transitioned to PO Diltiazem and Apixaban -Will receive Echo, Stress Test as an outpatient 4. Rheumatoid Arthritis -Will continue home medication regimen 5. Chronic Sinusitis -Will continue home medication regimen 6. GERD -Will continue home medication regimen Code: DNR PCP Jay ([facility]) Diet: Heart Healthy w/ Low Sodium Activity: Ad marii VTE PPx: Th. Lovenox GI PPx: Protonix Dispo: Patient is currently stable and admitted to the Telemetry Floor for jaiden oing treatment of COVID-19 superimposed on COPD Exacerbation. Will continue rate control for New-Onset A-Fib w/ RVR as per above and coordinate closely with Cardiology. Due to patient's continued need for supplemental O2, DC appears unlikely - will titrate O2 as tolerated and continue with steroids and Remdesivir, as well as home COPD regimen or equivalent as per above. Expected LOS > 48H.
[2020-02-16] MEDS: Apixaban 5 MG TAB PO SCH ×2 (08:20→21:36)
[2020-02-16] MEDS: Loratadine 10 MG TAB PO SCH (08:20)
[2020-02-16] MEDS: Dexamethasone 4 mg/ml Vial SLOW IVP SCH ×2 (08:21→21:36)
[2020-02-16] MEDS: Folic Acid 1 MG TAB PO SCH (08:21)
--- NOTE | 2020-02-16 11:57 | PRG ---
DATE OF SERVICE: 02/16/2020 Because Ms. Arango was not improving as rapidly felt we asked Dr. Garcia to consult on her. He stated we should go ahead and continue with the Decadron and give her some convalescent plasma. We appreciate input from Dr. Garcia and we will proceed with the plan. Job ID: [id number]
[2020-02-16] MEDS: REMDESIVIR (EUA) 100 MG in Sodium Chloride 0.9% 250 ML 230 ML IV SCH (16:52)
--- NOTE | 2020-02-17 05:25 | PDOC.FM ---
- Subjective Subjective: Patient was resting comfortably in bed at the time of evaluation. Patient denied any acute overnight events, and thought that her respiratory status had been improving, but noted that she still experienced somewhat severe FRYE when ambulating to her bedside commode. - Objective Vital Signs & Weight: Vital Signs (12 hours) Temp Pulse Resp BP Pulse Ox 02/17/20 05:00 97.8 F 61 16 120/68 98 02/16/20 23:38 97.6 F 71 16 129/70 98 02/16/20 21:30 97.6 F 72 18 139/71 91 L Weight Weight 68.583 kg Most Recent Monitor Data Heart Rate from ECG 72 I&O: 02/15/20 02/16/20 02/17/20 06:59 06:59 06:59 Intake Total 769 846 6746 Output Total 1000 1350 1150 Balance -200 -046 70 Result Diagrams: 02/15/20 05:08 02/15/20 05:08 Phys Exam - Physical Examination Constitutional: NAD HEENT: moist MMs, oral pharynx no lesions Neck: supple, full ROM Respiratory: no wheezing, no rales, no rhonchi, clear to auscultation bilateral O2 @ 3L via Nasal Cannula Cardiovascular: RRR, no significant murmur, no rub Gastrointestinal: soft, non-tender, no distention, positive bowel sounds Musculoskeletal: no edema, pulses present Neurological: non-focal, moves all 4 limbs Psychiatric: normal affect Skin: no rash Dx/Plan (1) COVID-19 Code(s): U07.1 - COVID-19 Status: Acute (2) COPD (chronic obstructive pulmonary disease) Status: Acute (3) Rheumatoid arthritis Code(s): M06.9 - RHEUMATOID ARTHRITIS, UNSPECIFIED Status: Acute (4) GERD (gastroesophageal reflux disease) Code(s): K21.9 - GASTRO-ESOPHAGEAL REFLUX DISEASE WITHOUT ESOPHAGITIS Status: Acute (5) A-fib Code(s): I48.91 - UNSPECIFIED ATRIAL FIBRILLATION Status: Acute - Plan Plan: Patient is a 69 y/o female with a PMH significant for COPD who presented to the hospital for evaluation of SOB. 1. SOB 2/2 COPD Exacerbation vs Pulmonary HTN vs COVID Pneumonia vs New-Onset A- Fib -Symptoms present for ~1W - failed outpatient treatment of Levofloxacin and steroids -VSS although patient has a new O2 requirement of 3L via Nasal Cannula - will continue to monitor closely -CXR: NAF -CTA: Subcarinal LAD, Emphysema, Atherosclerosis, Hiatial Hernia -Previously on Prednisone - transitioned to Dexamethasone following COVID(+) -Dulera BID ZHANG, Combivent ZHANG, Albuterol Q2H PRN 2. COVID(+) -Possible trigger for #1 and #3 -D-Dimer: 1.95 > 0.99 -Ferritin: 362 -LDH: 289 -CRP: 3.46 -Procal: 0.03 -Will monitor vital signs closely due to multiple high-risk comorbidities -Dr. Garcia (ID): Consulted - recommended Remdesivir (02/14) and Convalescent Plasma (02/15) - currently on Day 3 of 5 for Remdesivir -See #1 3. A-Fib w/ RVR -New-onset on 02/11 - initially tachycardic in the 150-180s, s/p Diltiazem 15 mg bolus -Cardiology: Consulted, recommended Digoxin 25 mcg x1, Diltiazem gtt and Th. Lovenox - transitioned to PO Diltiazem and Apixaban -Patient has been rate-controlled and monitored appropriately with telemetry -Will receive Echo, Stress Test as an outpatient 4. Rheumatoid Arthritis -Will continue home Methotrexate regimen 5. Chronic Sinusitis -Will continue home medication regimen 6. GERD -Will continue home medication regimen Code: DNR PCP Jay ([facility]) Diet: Heart Healthy w/ Low Sodium Activity: Ad marii VTE PPx: Th. Lovenox GI PPx: Protonix Dispo: Patient is currently stable and admitted to the Telemetry Floor for ongoing treatment of COVID-19 superimposed on COPD Exacerbation. ID consulted - recs appreciated with regard to Remdesivir and Convalescent Plasma - will continue Remdesivir as per above. Will continue rate control for New-Onset A-Fib w/ RVR as per above and coordinate closely with Cardiology. Will monitor Respiratory Status closely and continue to attempt to wean O2 requirement as tolerated. Expected LOS > 48H. Addendum - Attending - Attending Attestation Date/Time: 02/17/20 0174 I personally evaluated the patient and discussed the management with Dr. Whitfield I agree with the History, Examination, Assessment and Plan documented above with any addition or exceptions noted below. New onset Afib with RVR now rate controlled planned to have further Cardiac evaluation. Patient with bibasilar rale rec one time lasix dose for improved oxygenation.
[2020-02-17 05:36] LABS: ALT (SGPT) 52 U/L (8-55); AST (SGOT) 12 U/L (5-34); Albumin 3.6 g/dL (3.4-4.8); Alkaline Phosphatase 83 U/L (40-110); Bilirubin, Direct 0.2 mg/dL (0.1-0.3); Bilirubin, Total 0.4 mg/dL (0.2-1.2); Protein, Total 6.4 g/dL (6.0-8.3)
[2020-02-17] MEDS: Mometasone 200 MCG/Formoterol 5 MCG 120 PUFF INHALER INH SCH ×2 (06:08→18:50)
[2020-02-17] MEDS: Ipratropium/Albuterol Sulfate 4 GM AER IH SCH ×4 (06:08→18:51)
[2020-02-17] MEDS: Apixaban 5 MG TAB PO SCH ×2 (08:25→20:04)
[2020-02-17] MEDS: Loratadine 10 MG TAB PO SCH (08:25)
[2020-02-17] MEDS: Folic Acid 1 MG TAB PO SCH (08:25)
[2020-02-17] MEDS: Dexamethasone 4 mg/ml Vial SLOW IVP SCH ×2 (08:25→20:04)
--- NOTE | 2020-02-17 13:09 | EKG ---
Test Reason : Blood Pressure : / mmHG Vent. Rate : 086 BPM Atrial Rate : 086 BPM P-R Int : 110 ms QRS Dur : 060 ms QT Int : 342 ms P-R-T Axes : 046 015 037 degrees QTc Int : 409 ms Sinus rhythm with short KS Nonspecific ST and T wave abnormality Abnormal ECG Confirmed by BABAR MALIN M.D. ([id number]), video effects editor KAELYN ABREU ([id number]) on 02/17/2020 1:08:56 PM Referred By: Confirmed By:BABAR MALIN M.D.
[2020-02-17] MEDS ORDERED: Furosemide 20 MG/2 ML VIAL SLOW IVP SCH (15:15)
[2020-02-17] MEDS ORDERED: Artificial Tear Sol 15 ML BOT EA EYE PRN (15:28)
[2020-02-17] MEDS: REMDESIVIR (EUA) 100 MG in Sodium Chloride 0.9% 250 ML 230 ML IV SCH (16:23)
[2020-02-18 05:17] LABS: Hemoglobin 14.5 g/dL (12.0-16.0); Mean Corpuscular HGB CONC 34.1 g/dL (32.0-36.0); Mean Corpuscular Hemoglobin 28.8 pg (27.0-31.0); Mean Corpuscular Volume 84.4 fL (78.0-98.0); Mean Platelet Volume 7.6 fL (7.4-10.4); Platelet Count 237 thou/uL (130-400); RBC Distribution Width 12.2 % (11.5-14.5); Red Blood Cell (RBC) Count 5.04 mill/uL (4.20-5.40); White Blood Cell (WBC) Count 8.7 thou/uL (4.8-10.8)
--- NOTE | 2020-02-18 05:32 | PDOC.FM ---
- Subjective Subjective: Patient was resting comfortably in bed at the time of evaluation, specifically with regard to chest pain or palpitations, and denied any acute overnight events. She did however complain of poor sleep. Patient continues to endorse FRYE, but thinks that it is improving somewhat. - Objective Vital Signs & Weight: Vital Signs (12 hours) Temp Pulse Resp BP Pulse Ox 02/18/20 04:00 98.1 F 63 18 120/72 96 02/18/20 00:00 98.4 F 77 18 116/67 97 02/17/20 20:00 98.5 F 80 20 115/63 93 L Weight Weight 68.583 kg Most Recent Monitor Data Heart Rate from ECG 72 I&O: 02/16/20 02/17/20 02/18/20 06:59 06:59 06:59 Intake Total 970 1580 1210 Output Total 1350 1900 Balance -380 -320 1210 Result Diagrams: 02/18/20 05:06 02/18/20 05:06 Phys Exam - Physical Examination Constitutional: NAD HEENT: moist MMs, oral pharynx no lesions Neck: supple, full ROM Respiratory: no wheezing Poor air movement, minimal crackles Cardiovascular: RRR, no significant murmur, no rub Gastrointestinal: soft, non-tender, no distention, positive bowel sounds Musculoskeletal: no edema, pulses present Neurological: non-focal, moves all 4 limbs Psychiatric: normal affect Dx/Plan (1) COVID-19 Code(s): U07.1 - COVID-19 Status: Acute (2) COPD (chronic obstructive pulmonary disease) Status: Acute (3) Rheumatoid arthritis Code(s): M06.9 - RHEUMATOID ARTHRITIS, UNSPECIFIED Status: Acute (4) GERD (gastroesophageal reflux disease) Code(s): K21.9 - GASTRO-ESOPHAGEAL REFLUX DISEASE WITHOUT ESOPHAGITIS Status: Acute (5) A-fib Code(s): I48.91 - UNSPECIFIED ATRIAL FIBRILLATION Status: Acute - Plan Plan: Patient is a 69 y/o female with a PMH significant for COPD who presented to the hospital for evaluation of SOB. 1. SOB 2/2 COPD Exacerbation vs Pulmonary HTN vs COVID Pneumonia vs New-Onset A- Fib -Symptoms present for ~1W - failed outpatient treatment of Levofloxacin and steroids -VSS although patient has a new O2 requirement of 2L via Nasal Cannula - improvement since 02/16 -CXR: NAF -CTA: Subcarinal LAD, Emphysema, Atherosclerosis, Hiatial Hernia -Previously on Prednisone - transitioned to Dexamethasone following COVID(+) -Dulera BID ZHANG, Combivent ZHANG, Albuterol Q2H PRN 2. COVID(+) -Possible trigger for #1 and #3 -D-Dimer: 1.95 > 0.99 -Ferritin: 362 -LDH: 289 -CRP: 3.46 -Procal: 0.03 -Will monitor vital signs closely due to multiple high-risk comorbidities -Dr. Garcia (ID): Consulted - recommended Remdesivir (02/14) and Convalescent Plasma (02/15) - currently on Day 4 of 5 for Remdesivir -See #1 3. A-Fib w/ RVR -New-onset on 02/11 - initially tachycardic in the 150-180s, s/p Diltiazem 15 mg bolus -Cardiology: Consulted, recommended Digoxin 25 mcg x1, Diltiazem gtt and Th. Lovenox - transitioned to PO Diltiazem and Apixaban -Patient has been rate-controlled and monitored appropriately with telemetry -Will receive Echo, Stress Test as an outpatient 4. Hyperglycemia -Likely secondary to prolong steroid use -Will add ACHS Accuchecks, Mild SSI and Hypoglycemia Protocol 5. Rheumatoid Arthritis -Will continue home Methotrexate regimen 6. Chronic Sinusitis -Will continue home medication regimen 7. GERD -Will continue home medication regimen Code: DNR PCP Jay ([facility]) Diet: Heart Healthy w/ Low Sodium Activity: Ad marii VTE PPx: Apixaban GI PPx: Protonix Dispo: Patient is currently stable and admitted to the Telemetry Floor for ongoing treatment of COVID-19 superimposed on COPD Exacerbation. ID consulted - recs appreciated with regard to Remdesivir and Convalescent Plasma - will continue Remdesivir as per above. Will continue rate control for New-Onset A-Fib w/ RVR as per above and coordinate closely with Cardiology. Will monitor Respiratory Status closely and continue to attempt to wean O2 requirement as tolerated. Expected LOS > 48H. Addendum - Attending - Attending Attestation Date/Time: 02/18/20 1162 I personally evaluated the patient and discussed the management with Dr. Whitfield I agree with the History, Examination, Assessment and Plan documented above with any addition or exceptions noted below.
[2020-02-18 05:47] LABS: ALT (SGPT) 41 U/L (8-55); AST (SGOT) 8 U/L (5-34); Albumin 3.7 g/dL (3.4-4.8); Alkaline Phosphatase 82 U/L (40-110); Anion Gap 14 mmol/L (10-20); BUN (Urea Nitrogen) 32 mg/dL (9.8-20.1); Bilirubin, Direct 0.2 mg/dL (0.1-0.3); Bilirubin, Total 0.4 mg/dL (0.2-1.2); Calc. Creatinine Clearance 81 mL/min (70-130); Carbon Dioxide 22 mmol/L (23-31); Chloride 101 mmol/L (98-107); Estimated GFR-MDRD 80; Glucose 240 mg/dL (80-115); Potassium 4.4 mmol/L (3.5-5.1); Protein, Total 6.5 g/dL (6.0-8.3); Sodium 133 mmol/L (136-145)
[2020-02-18] MEDS: Mometasone 200 MCG/Formoterol 5 MCG 120 PUFF INHALER INH SCH ×2 (06:31→18:07)
[2020-02-18] MEDS: Ipratropium/Albuterol Sulfate 4 GM AER IH SCH ×4 (06:33→18:07)
[2020-02-18] MEDS: Dexamethasone 4 mg/ml Vial SLOW IVP SCH ×2 (10:30→21:38)
[2020-02-18] MEDS: Folic Acid 1 MG TAB PO SCH (10:31)
[2020-02-18] MEDS: Apixaban 5 MG TAB PO SCH ×2 (10:31→21:38)
[2020-02-18] MEDS: Loratadine 10 MG TAB PO SCH (10:31)
[2020-02-18] MEDS ORDERED: Dextrose 50% Abboject 50 ML SYRINGE SLOW IVP PRN (11:54)
[2020-02-18] MEDS ORDERED: Dextrose 5% in Water 1,000 ML IV PRN (11:54)
[2020-02-18] MEDS: HumaLOG 300 UNITS/3 ML VIAL SC PRN ×2 (12:56→18:07)
[2020-02-18] MEDS: REMDESIVIR (EUA) 100 MG in Sodium Chloride 0.9% 250 ML 230 ML IV SCH (17:11)
[2020-02-18] MEDS: Doxycycline 100 MG CAP PO SCH (21:38)
[2020-02-19] MEDS: Methotrexate Sodium 2.5 MG TAB PO SCH (00:15)
[2020-02-19 05:39] LABS: ALT (SGPT) 41 U/L (8-55); AST (SGOT) 13 U/L (5-34); Albumin 3.6 g/dL (3.4-4.8); Alkaline Phosphatase 84 U/L (40-110); Bilirubin, Direct 0.2 mg/dL (0.1-0.3); Bilirubin, Total 0.4 mg/dL (0.2-1.2); Protein, Total 6.2 g/dL (6.0-8.3)
[2020-02-19] MEDS: HumaLOG 300 UNITS/3 ML VIAL SC PRN ×3 (06:20→18:03)
--- NOTE | 2020-02-19 07:44 | PDOC.FM ---
- Subjective Subjective: Pt is doing well today. She has remained on [place] oxygen. She fatigues very easily. She lives alone and does not think she can care for herself. She does not want rehab but understands need. - Objective Vital Signs & Weight: Vital Signs (12 hours) Temp Pulse Resp BP Pulse Ox 02/19/20 04:40 97.7 F 63 20 115/66 94 L 02/19/20 02:48 78 16 113/62 02/19/20 00:33 69 116/62 95 02/18/20 20:40 70 18 127/62 95 Weight Weight 68.583 kg Most Recent Monitor Data Heart Rate from ECG 72 I&O: 02/18/20 02/19/20 02/20/20 06:59 06:59 06:59 Intake Total 1210 1200 Balance 1210 1200 Result Diagrams: 02/18/20 05:06 02/18/20 05:06 Phys Exam - Physical Examination Constitutional: NAD HEENT: PERRLA, moist MMs Neck: no JVD bilateral rales Cardiovascular: RRR, no significant murmur Gastrointestinal: soft, no distention Musculoskeletal: no edema, pulses present Psychiatric: normal affect, A&O x 3 Dx/Plan (1) A-fib Code(s): I48.91 - UNSPECIFIED ATRIAL FIBRILLATION Status: Acute (2) COPD (chronic obstructive pulmonary disease) Status: Acute (3) COVID-19 Code(s): U07.1 - COVID-19 Status: Acute (4) GERD (gastroesophageal reflux disease) Code(s): K21.9 - GASTRO-ESOPHAGEAL REFLUX DISEASE WITHOUT ESOPHAGITIS Status: Acute (5) Rheumatoid arthritis Code(s): M06.9 - RHEUMATOID ARTHRITIS, UNSPECIFIED Status: Acute - Plan Plan: Patient is a 69 y/o female with a PMH significant for COPD who presented to the hospital for evaluation of SOB. 1. SOB 2/2 COPD Exacerbation vs Pulmonary HTN vs COVID Pneumonia vs New-Onset A- Fib -Symptoms present for ~1W - failed outpatient treatment of Levofloxacin and steroids -VSS although patient has a new O2 requirement of 2L via Nasal Cannula - improvement since 02/16 -CXR: NAF -CTA: Subcarinal LAD, Emphysema, Atherosclerosis, Hiatial Hernia -Previously on Prednisone - transitioned to Dexamethasone following COVID(+) -Dulera BID ZHANG, Combivent ZHANG, Albuterol Q2H PRN 2. COVID(+) -Possible trigger for #1 and #3 -D-Dimer: 1.95 > 0.99 -Ferritin: 362 -LDH: 289 -CRP: 3.46 -Procal: 0.03 -Will monitor vital signs closely due to multiple high-risk comorbidities -Dr. Garcia (ID): Consulted - recommended Remdesivir (02/14) and Convalescent Plasma (02/15) - currently on Day 5 of 5 for Remdesivir -See #1 3. A-Fib w/ RVR -New-onset on 02/11 - initially tachycardic in the 150-180s, s/p Diltiazem 15 mg bolus -Cardiology: Consulted, recommended Digoxin 25 mcg x1, Diltiazem gtt and Th. Lovenox - transitioned to PO Diltiazem and Apixaban -Patient has been rate-controlled and monitored appropriately with telemetry -Will receive Echo, Stress Test as an outpatient 4. Hyperglycemia -Likely secondary to prolong steroid use -Will add ACHS Accuchecks, Mild SSI and Hypoglycemia Protocol 5. Rheumatoid Arthritis -Will continue home Methotrexate regimen 6. Chronic Sinusitis -Will continue home medication regimen 7. GERD -Will continue home medication regimen Code: DNR PCP Jay ([facility]) Diet: Heart Healthy w/ Low Sodium Activity: Ad marii VTE PPx: Apixaban GI PPx: Protonix Dispo: Pending PT/OT and discussion for placement. Addendum - Attending - Attending Attestation Date/Time: 02/19/20 [id number] I personally evaluated the patient and discussed the management with Dr. Peres . I agree with the History, Examination, Assessment and Plan documented above with any addition or exceptions noted below. Hypoxic resp failure d/t [id number], COPD, Afib w/ RVR corrected, improved with Dex, Remdesivir, Convalescent Plasma. Off O2, test exercise tolerance. Home soon.
[2020-02-19] MEDS: Folic Acid 1 MG TAB PO SCH (08:49)
[2020-02-19] MEDS: Apixaban 5 MG TAB PO SCH ×2 (08:49→19:17)
[2020-02-19] MEDS: Loratadine 10 MG TAB PO SCH (08:49)
[2020-02-19] MEDS: Mometasone 200 MCG/Formoterol 5 MCG 120 PUFF INHALER INH SCH ×2 (08:50→18:05)
[2020-02-19] MEDS: Dexamethasone 4 mg/ml Vial SLOW IVP SCH ×2 (08:50→19:17)
[2020-02-19] MEDS: Doxycycline 100 MG CAP PO SCH ×2 (08:50→19:17)
[2020-02-19] MEDS: Ipratropium/Albuterol Sulfate 4 GM AER IH SCH ×4 (08:51→19:16)
[2020-02-19] MEDS: REMDESIVIR (EUA) 100 MG in Sodium Chloride 0.9% 250 ML 230 ML IV SCH (18:03)
[2020-02-19] MEDS ORDERED: HumaLOG 300 UNITS/3 ML VIAL SC PRN (23:30)
[2020-02-20 05:56] LABS: ALT (SGPT) 38 U/L (8-55); AST (SGOT) 10 U/L (5-34); Albumin 3.5 g/dL (3.4-4.8); Alkaline Phosphatase 86 U/L (40-110); Bilirubin, Direct 0.2 mg/dL (0.1-0.3); Bilirubin, Total 0.4 mg/dL (0.2-1.2); Protein, Total 5.9 g/dL (6.0-8.3)
[2020-02-20] MEDS: Ipratropium/Albuterol Sulfate 4 GM AER IH SCH ×4 (06:15→21:11)
[2020-02-20] MEDS: Mometasone 200 MCG/Formoterol 5 MCG 120 PUFF INHALER INH SCH ×2 (06:15→21:11)
[2020-02-20] MEDS: HumaLOG 300 UNITS/3 ML VIAL SC PRN ×3 (06:16→16:55)
--- NOTE | 2020-02-20 07:08 | PDOC.FM ---
- Subjective Subjective: Pt is doing well today. She is on 2 L NC. Her respiratory status is unchanged. She has not worked with PT/OT. She is open to the idea of placement for rehab as she lives alone and has no extra help. - Objective Vital Signs & Weight: Vital Signs (12 hours) Temp Pulse Resp BP BP Pulse Ox 02/20/20 04:20 127/70 02/20/20 03:05 97.9 F 70 15 127/70 97 02/20/20 00:10 117/57 L 02/19/20 23:04 98.7 F 69 19 117/57 L 95 02/19/20 19:45 97.9 F 70 16 109/64 97 02/19/20 19:26 109/64 02/19/20 19:17 97 Weight Weight 68.583 kg Most Recent Monitor Data Heart Rate from ECG 72 I&O: 02/19/20 02/20/20 02/21/20 06:59 06:59 06:59 Intake Total 1200 650 Balance 1200 650 Result Diagrams: 02/18/20 05:06 02/18/20 05:06 Phys Exam - Physical Examination Constitutional: NAD HEENT: PERRLA, oral pharynx no lesions Neck: no JVD, full ROM bilateral crackles, no respiratory distress Cardiovascular: RRR, no significant murmur Gastrointestinal: soft, positive bowel sounds Musculoskeletal: no edema, pulses present Neurological: non-focal, moves all 4 limbs Psychiatric: normal affect, A&O x 3 Dx/Plan (1) A-fib Code(s): I48.91 - UNSPECIFIED ATRIAL FIBRILLATION Status: Acute (2) COPD (chronic obstructive pulmonary disease) Status: Acute (3) COVID-19 Code(s): U07.1 - COVID-19 Status: Acute (4) GERD (gastroesophageal reflux disease) Code(s): K21.9 - GASTRO-ESOPHAGEAL REFLUX DISEASE WITHOUT ESOPHAGITIS Status: Acute (5) Rheumatoid arthritis Code(s): M06.9 - RHEUMATOID ARTHRITIS, UNSPECIFIED Status: Acute - Plan Plan: Patient is a 69 y/o female with a PMH significant for COPD who presented to the hospital for evaluation of SOB. 1. SOB 2/2 COPD Exacerbation vs Pulmonary HTN vs COVID Pneumonia vs New-Onset A- Fib -Previously on Prednisone - transitioned to Dexamethasone following COVID(+) -Dulera BID ZHANG, Combivent ZHANG, Albuterol Q2H PRN -doxycycline initiated on 02/[address] Venegas 2. COVID(+) -Possible trigger for #1 and #3 -Will monitor vital signs closely due to multiple high-risk comorbidities -Dr. Garcia (ID): Consulted - Convalescent Plasma (02/15) - currently on Day 5 of 5 for Remdesivir -Treat with dexamethasone for a total of 10 days or until discharge, initiated 02/11. -See #1 3. A-Fib w/ RVR -New-onset on 02/11 - initially tachycardic in the 150-180s, s/p Diltiazem 15 mg bolus -Cardiology: Consulted, recommended Digoxin 25 mcg x1, Diltiazem gtt and Th. Lovenox - transitioned to PO Diltiazem and Apixaban -Patient has been rate-controlled and monitored appropriately with telemetry -Will receive Echo, Stress Test as an outpatient 4. Hyperglycemia -Likely secondary to prolong steroid use -Continue ACHS Accuchecks, Mild SSI and Hypoglycemia Protocol 5. Rheumatoid Arthritis -Will continue home Methotrexate regimen 6. Chronic Sinusitis -Will continue home medication regimen 7. GERD -Will continue home medication regimen Code: DNR PCP Jay ([facility]) Diet: Heart Healthy w/ Low Sodium Activity: Ad marii VTE PPx: Apixaban GI PPx: Protonix Dispo: Pending PT/OT and discussion for placement vs
[2020-02-20] MEDS: Dexamethasone 4 mg/ml Vial SLOW IVP SCH ×2 (08:33→21:12)
[2020-02-20] MEDS: Apixaban 5 MG TAB PO SCH ×2 (08:33→21:12)
[2020-02-20] MEDS: Doxycycline 100 MG CAP PO SCH ×2 (08:34→21:12)
[2020-02-20] MEDS: Loratadine 10 MG TAB PO SCH (08:34)
[2020-02-20] MEDS: Folic Acid 1 MG TAB PO SCH (08:34)
[2020-02-21] MEDS: HumaLOG 300 UNITS/3 ML VIAL SC PRN ×3 (04:50→16:24)
[2020-02-21 05:07] LABS: ALT (SGPT) 31 U/L (8-55); AST (SGOT) 7 U/L (5-34); Albumin 3.6 g/dL (3.4-4.8); Alkaline Phosphatase 88 U/L (40-110); Bilirubin, Direct 0.2 mg/dL (0.1-0.3); Bilirubin, Total 0.4 mg/dL (0.2-1.2); Protein, Total 6.1 g/dL (6.0-8.3)
[2020-02-21] MEDS: Ipratropium/Albuterol Sulfate 4 GM AER IH SCH ×4 (06:00→21:24)
[2020-02-21] MEDS: Mometasone 200 MCG/Formoterol 5 MCG 120 PUFF INHALER INH SCH ×2 (06:00→16:33)
--- NOTE | 2020-02-21 07:33 | PDOC.FM ---
- Subjective Subjective: Pt is doing well today. SHe has no complaints. Denies N/V, fever, abdominal pain, worsening sob. She feels fine at rest with 2 L but worse with movement. - Objective Vital Signs & Weight: Vital Signs (12 hours) Temp Pulse Resp BP BP Pulse Ox 02/21/20 04:47 97.9 F 63 18 119/63 97 02/20/20 23:26 98.2 F 67 18 114/64 114/64 98 02/20/20 21:20 98.3 F 70 16 117/63 117/63 98 Weight Weight 68.583 kg Most Recent Monitor Data Heart Rate from ECG 72 I&O: 02/20/20 02/21/20 02/22/20 06:59 06:59 06:59 Intake Total 650 360 Balance 650 360 Result Diagrams: 02/18/20 05:06 02/18/20 05:06 Phys Exam - Physical Examination Constitutional: NAD HEENT: PERRLA, moist MMs Respiratory: no wheezing bilateral rales Cardiovascular: RRR, no significant murmur Gastrointestinal: soft, non-tender Musculoskeletal: no edema, pulses present Dx/Plan (1) A-fib Code(s): I48.91 - UNSPECIFIED ATRIAL FIBRILLATION Status: Acute (2) COPD (chronic obstructive pulmonary disease) Status: Acute (3) COVID-19 Code(s): U07.1 - COVID-19 Status: Acute (4) GERD (gastroesophageal reflux disease) Code(s): K21.9 - GASTRO-ESOPHAGEAL REFLUX DISEASE WITHOUT ESOPHAGITIS Status: Acute (5) Rheumatoid arthritis Code(s): M06.9 - RHEUMATOID ARTHRITIS, UNSPECIFIED Status: Acute - Plan Plan: Patient is a 69 y/o female with a PMH significant for COPD who presented to the hospital for evaluation of SOB. 1. SOB 2/2 COPD Exacerbation vs Pulmonary HTN vs COVID Pneumonia vs New-Onset A- Fib -Previously on Prednisone - transitioned to Dexamethasone following COVID(+) -Dulera BID ZHANG, Combivent ZHANG, Albuterol Q2H PRN -doxycycline initiated on 02/[address] Venegas - treat for 7 days 2. COVID(+) -Possible trigger for #1 and #3 -Will monitor vital signs closely due to multiple high-risk comorbidities -Dr. Garcia (ID): Consulted - Convalescent Plasma (02/15) - currently on Day 5 of 5 for Remdesivir -Treat with dexamethasone for a total of 10 days or until discharge, initiated 02/11. -See #1 3. A-Fib w/ RVR -New-onset on 02/11 - initially tachycardic in the 150-180s, s/p Diltiazem 15 mg bolus -Cardiology: Consulted, recommended Digoxin 25 mcg x1, Diltiazem gtt and Th. Lovenox - transitioned to PO Diltiazem and Apixaban -Patient has been rate-controlled and monitored appropriately with telemetry -Will receive Echo, Stress Test as an outpatient 4. Hyperglycemia -Likely secondary to prolong steroid use -Continue ACHS Accuchecks, Mild SSI and Hypoglycemia Protocol 5. Rheumatoid Arthritis -Will continue home Methotrexate regimen 6. Chronic Sinusitis -Will continue home medication regimen 7. GERD -Will continue home medication regimen Code: DNR PCP Jay ([facility]) Diet: Heart Healthy w/ Low Sodium Activity: Ad marii VTE PPx: Apixaban GI PPx: Protonix Dispo: Pending PT/OT and discussion for placement
[2020-02-21] MEDS: Doxycycline 100 MG CAP PO SCH ×2 (07:59→21:24)
[2020-02-21] MEDS: Folic Acid 1 MG TAB PO SCH (07:59)
[2020-02-21] MEDS: Loratadine 10 MG TAB PO SCH (07:59)
[2020-02-21] MEDS: Apixaban 5 MG TAB PO SCH ×2 (08:00→21:24)
[2020-02-21] MEDS: Dexamethasone 4 mg/ml Vial SLOW IVP SCH (08:00)
[2020-02-21 10:15] LABS: Hemoglobin A1c 6.4 % (4.0-6.0)
[2020-02-21] MEDS ORDERED: Dexamethasone 4 MG TAB PO SCH (21:45)
[2020-02-22] MEDS: Dexamethasone 4 mg/ml Vial SLOW IVP SCH (03:34)
[2020-02-22 05:37] LABS: ALT (SGPT) 22 U/L (8-55); AST (SGOT) 6 U/L (5-34); Albumin 3.4 g/dL (3.4-4.8); Alkaline Phosphatase 98 U/L (40-110); Bilirubin, Direct 0.2 mg/dL (0.1-0.3); Bilirubin, Total 0.4 mg/dL (0.2-1.2); Protein, Total 5.6 g/dL (6.0-8.3)
[2020-02-22] MEDS: HumaLOG 300 UNITS/3 ML VIAL SC PRN ×2 (06:17→12:19)
--- NOTE | 2020-02-22 07:18 | PDOC.FM ---
- Subjective Subjective: Pt is doing well today. She has no complaints. She is able to walk to the bathroom but becomes dyspneic. She denies fever, chills. She is tolerating good PO intake. - Objective Vital Signs & Weight: Vital Signs (12 hours) Temp Pulse Resp BP BP BP Pulse Ox 02/22/20 04:17 98.1 F 66 20 118/66 118/66 98 02/22/20 01:10 98.1 F 69 14 103/63 98 02/21/20 21:40 97.6 F 69 18 118/60 96 Weight Weight 68.583 kg Most Recent Monitor Data Heart Rate from ECG 72 I&O: 02/21/20 02/22/20 02/23/20 06:59 06:59 06:59 Intake Total 360 1440 Output Total 1500 Balance 360 -60 Result Diagrams: 02/18/20 05:06 02/18/20 05:06 Phys Exam - Physical Examination Constitutional: NAD HEENT: PERRLA, moist MMs Respiratory: no wheezing bilateral rales Cardiovascular: RRR, no significant murmur Gastrointestinal: soft, non-tender Musculoskeletal: no edema, pulses present Dx/Plan (1) A-fib Code(s): I48.91 - UNSPECIFIED ATRIAL FIBRILLATION Status: Acute (2) COPD (chronic obstructive pulmonary disease) Status: Acute (3) COVID-19 Code(s): U07.1 - COVID-19 Status: Acute (4) GERD (gastroesophageal reflux disease) Code(s): K21.9 - GASTRO-ESOPHAGEAL REFLUX DISEASE WITHOUT ESOPHAGITIS Status: Acute (5) Rheumatoid arthritis Code(s): M06.9 - RHEUMATOID ARTHRITIS, UNSPECIFIED Status: Acute - Plan Plan: Patient is a 69 y/o female with a PMH significant for COPD who presented to the hospital for evaluation of SOB. 1. SOB 2/2 COPD Exacerbation vs Pulmonary HTN vs COVID Pneumonia vs New-Onset A- Fib -Previously on Prednisone - transitioned to Dexamethasone following COVID(+) -Dulera BID ZHANG, Combivent ZHANG, Albuterol Q2H PRN -doxycycline initiated on 02/[address] Venegas - treat for 7 days 2. COVID(+) -Possible trigger for #1 and #3 -Will monitor vital signs closely due to multiple high-risk comorbidities -Dr. Garcia (ID): Consulted - Convalescent Plasma (02/15) - currently on Day 5 of 5 for Remdesivir -Treat with dexamethasone for a total of 10 days or until discharge, initiated 02/11. -See #1 3. A-Fib w/ RVR -New-onset on 02/11 - initially tachycardic in the 150-180s, s/p Diltiazem 15 mg bolus -Cardiology: Consulted, recommended Digoxin 25 mcg x1, Diltiazem gtt and Th. Lovenox - transitioned to PO Diltiazem and Apixaban -Patient has been rate-controlled and monitored appropriately with telemetry -Will receive Echo, Stress Test as an outpatient 4. Hyperglycemia -Likely secondary to prolong steroid use -Continue ACHS Accuchecks, Mild SSI and Hypoglycemia Protocol 5. Rheumatoid Arthritis -Will continue home Methotrexate regimen 6. Chronic Sinusitis -Will continue home medication regimen 7. GERD -Will continue home medication regimen Code: DNR PCP Jay ([facility]) Diet: Heart Healthy w/ Low Sodium Activity: Ad marii VTE PPx: Apixaban GI PPx: Protonix Dispo: Pending PT/OT and discussion for placement
[2020-02-22] MEDS ORDERED: predniSONE 20 MG TAB PO SCH (08:00)
[2020-02-22] MEDS ORDERED: Dexamethasone 4 MG TAB PO SCH (08:00)
[2020-02-22] MEDS: Ipratropium/Albuterol Sulfate 4 GM AER IH SCH ×3 (08:29→15:50)
[2020-02-22] MEDS: Mometasone 200 MCG/Formoterol 5 MCG 120 PUFF INHALER INH SCH (08:30)
[2020-02-22] MEDS: Folic Acid 1 MG TAB PO SCH (08:31)
[2020-02-22] MEDS: Doxycycline 100 MG CAP PO SCH (08:31)
[2020-02-22] MEDS: Apixaban 5 MG TAB PO SCH (08:31)
[2020-02-22] MEDS: Loratadine 10 MG TAB PO SCH (08:31)
[2020-02-22 14:33] VITALS: BP 119/66; TEMP 97.7
== END 2020-02-22 16:22 | disposition home or self-care (01) | DRG 177 ==
LOC: ERS 12:55 → 2SW 17:33 → OBSVTOIN 17:33
PROVIDERS: ADMIT Family Medicine; ATTEND Family Medicine
PROC: 8E0ZXY6 Isolation (ICD-10-PCS; principal; 2020-02-11)
PROC: XW033E5 Introduction of Remdesivir Anti-infective into Peripheral Vein, Percutaneous Approach, New Technology Group 5 (ICD-10-PCS; 2020-02-15)
PROC: XW13325 Transfusion of Convalescent Plasma (Nonautologous) into Peripheral Vein, Percutaneous Approach, New Technology Group 5 (ICD-10-PCS; 2020-02-16)
DX: U07.1 COVID-19 (principal); J12.89 Other viral pneumonia; J44.0 Chronic obstructive pulmonary disease with (acute) lower respiratory infection; J44.1 Chronic obstructive pulmonary disease with (acute) exacerbation; Z66 Do not resuscitate; K21.9 Gastro-esophageal reflux disease without esophagitis; J32.9 Chronic sinusitis, unspecified; N39.41 Urge incontinence; I48.91 Unspecified atrial fibrillation; I27.20 Pulmonary hypertension, unspecified; M06.9 Rheumatoid arthritis, unspecified; R73.9 Hyperglycemia, unspecified; T38.0X5A Adverse effect of glucocorticoids and synthetic analogues, initial encounter; Z98.51 Tubal ligation status; Z87.891 Personal history of nicotine dependence; Z79.899 Other long term (current) drug therapy; Z79.51 Long term (current) use of inhaled steroids; Z88.1 Allergy status to other antibiotic agents
CPT/HCPCS: 36415; 36416; 36430; 71045; 71275; 80048; 80053; 80061; 80076; 82728; 82805; 83036; 83615; 83880; 84145; 84439; 84443; 84481; 84484; 85025; 85027; 85379; 85610; 85730; 86140; 86850; 86900; 86901; 87635; 93005; 93010; 94664; 96372; 96374; 96375; 96376; G0378; J1100; J1160; J1650; J1940; J2930; J3490; J7050; J7512; J8540; J8610; P9017; Q9967; U0003

== ENCOUNTER 2020-04-11 11:44 | Outpatient (CLI) | payer BC, MEDICARE ==
--- NOTE | 2020-04-11 13:31 | RAD ---
TWO VIEWS OF THE CHEST: COMPARISON: 03/22/2020. 03/11/2020. CTA chest 02/11/2020. HISTORY: Dyspnea. Followup COVID pneumonia. FINDINGS: A single view of the chest shows a normal-size cardiomediastinal silhouette. Stable increased inters titial lung markings are seen in the lungs. These are more prominent in the lung bases, but have not changed significantly compared to the prior exam. Biapical pleural thickening is seen. No pleural effusion is seen. Degenerative changes are seen in the spine. IMPRESSION: Bilateral chronic interstitial lung disease/scarring. POS: EAA
== END 2020-04-11 11:45 | disposition home or self-care (01) ==
LOC: BICRAD 11:44
PROVIDERS: ATTEND Internal Medicine Critical Care Medicine
DX: R06.00 Dyspnea, unspecified (principal)
CPT/HCPCS: 71046

== ENCOUNTER 2020-06-25 20:23 | Inpatient (IN) | payer BC, MEDICARE ==
[2020-06-25 20:51] LABS: #Eosinphils 0.1 thou/uL (0.0-0.7); #Lymphocytes 1.6 thou/uL (1.20-3.40); #Monocytes 0.5 thou/uL (0.11-0.59); #Neutrophils 7.5 thou/uL (1.40-6.50); %Basophils 0.4 % (0.0-1.0); %Eosinophils 0.9 % (0.0-10.0); %Lymphocytes 16.5 % (21.0-51.0); %Monocytes 5.2 % (0.0-10.0); Hemoglobin 12.4 g/dL (12.0-16.0); Mean Corpuscular HGB CONC 34.9 g/dL (32.0-36.0); Mean Corpuscular Hemoglobin 30.2 pg (27.0-31.0); Mean Corpuscular Volume 86.5 fL (78.0-98.0); Platelet Count 201 thou/uL (130-400); Red Blood Cell (RBC) Count 4.12 mill/uL (4.20-5.40); White Blood Cell (WBC) Count 9.8 thou/uL (4.8-10.8)
--- NOTE | 2020-06-25 20:51 | RAD ---
SINGLE VIEW OF THE CHEST: 06/25/20 COMPARISON: 02/11/20 HISTORY: Chest pain. Coronary artery disease. FINDINGS: Single view of the chest shows a normal sized cardiomediastinal silhouette. Diffuse increased interst itial markings are present. There is no evidence of consolidation, mass or pleural effusion. IMPRESSION: 1. No evidence of acute cardiopulmonary disease. 2. Chronic interstitial lung disease. POS: EAA
[2020-06-25 21:15] LABS: ALT (SGPT) 19 U/L (8-55); AST (SGOT) 26 U/L (5-34); Albumin 3.8 g/dL (3.4-4.8); Alkaline Phosphatase 136 U/L (40-110); Anion Gap 12 mmol/L (10-20); BUN (Urea Nitrogen) 14 mg/dL (9.8-20.1); Bilirubin, Total 0.3 mg/dL (0.2-1.2); Calc. Creatinine Clearance 0 mL/min (70-130); Calcium 8.4 mg/dL (7.8-10.44); Carbon Dioxide 22 mmol/L (23-31); Chloride 109 mmol/L (98-107); Globulin 2.6 g/dL (2.4-3.5); Glucose 121 mg/dL (80-115); Potassium 3.2 mmol/L (3.5-5.1); Protein, Total 6.4 g/dL (5.8-8.1); Sodium 140 mmol/L (136-145)
[2020-06-25] MEDS ORDERED: Potassium Chloride 20 MEQ TAB ONE (21:42)
[2020-06-25] MEDS ORDERED: Aspirin 325 MG TAB ONE (21:42)
--- NOTE | 2020-06-25 21:50 | PDOC.HHP ---
Hospitalist HPI Chest pain History of Present Illness: PCP; Dr. Irasema Perez The patient is a 69-year-old female with a past medical history significant for CAD x1 stent (05/23), paroxysmal atrial fibrillation, COPD, rheumatoid arthritis and GERD that presents emergency department via EMS for the above complaint. Patient reports the acute onset of epigastric pain at approximately 1900. Pain was located epigastric, described as deep burning, progressed to deep aching, constant, exacerbated relieved by nothing. The patient initially thought it was related to her acid reflux because she had just eaten. She took Tums with no relief. She then went to put on her nasal cannula which she uses intermittently at home for her COPD, which gave her no relief of her symptoms. She called her family who came over to visit. They called EMS. Upon arrival, EMS administered 2 sprays of nitroglycerin and a full dose aspirin. The patient reports that the pain gradually went away, approximately 10 minutes after the second dose of sublingual nitroglycerin. She denies any heart palpitation, lightheadedness, swelling to her lower extremities or diaphoresis. She denies shortness of breath, cough/wheezing, hemoptysis. No history of DVT/PE. She denies nausea, vomiting, hematemesis, hematochezia/melena. She denies dysuria hematuria. She denies fever and chills. No known sick contacts. Of note, the patient tested Covid positive in February 2020. She was hospitalized for 8 weeks. Since her discharge she has had dyspnea on exertion and generalized fatigue with exertion. She underwent cardiac stress test with echocardiogram by Dr. Nolen at the [facility] in May 2020. She underwent subsequent right heart catheterization and had a single stent placed. She takes Eliquis for atrial fibrillation was placed on Plavix for her stent. She has been compliant with home medication regimen. ED Course: VITAL SIGNS WedJun 25, 2020 20:30 RAMOS aRo Cory BP: 117/78, Pulse: 87, Resp: 18, Temp: 98.0 (Oral), Pain: 0, O2 sat: 97 on (Room Air), Time: 06/25/2020 20:30 Medication administration: aspirin oral 325 mg Oral Acknowledged 21:39 06/25/2020 K-Dur 40 mEq Oral Acknowledged 21:39 06/25/2020 Allergies/Adverse Reactions: Allergy/AdvReac Type Severity Reaction Status Date / Time azithromycin Allergy SWELLING Verified 02/22/20 18:17 Home Medications: Medication Instructions Recorded Confirmed Type Cetirizine HCl [Zyrtec] 10 mg PO DAILY 02/11/20 02/22/20 History Fluticasone Furoate [Arnuity 1 inh PO DAILY 02/11/20 02/23/20 History Ellipta] Fluticasone/Vilanterol [Breo 1 inh PO DAILY 02/11/20 02/23/20 History Ellipta 200-25 Mcg INH] Folic Acid 1 mg PO DAILY 02/11/20 02/22/20 History Ipratropium/Albuterol Sulfate 1 puff INH QID-RT 02/11/20 02/22/20 History [Combivent Respimat] Lansoprazole [Prevacid 24Hr] 15 mg PO DAILY 02/11/20 02/22/20 History Methotrexate Sodium 2.5 mg PO Q7D 02/11/20 02/23/20 History Apixaban [Eliquis] 5 mg PO BID #60 tab 03/23/20 Rx Diltiazem CD [Cardizem CD] 120 mg PO DAILY #30 cap 03/23/20 Rx Past History: PMH: CAD x1 (05/23), RA, COPD, atrial fibrillation, GERD PSX: CAD x1 (05/23), tubal ligation Social: Vapes. Former smoker quitting 5 years ago. No history of illicit drug use or heavy alcohol intake. She was alone. She is independent. She currently does not work after having [employer]. FxHx: Noncontributory for cardiac disease Hospitalist HPI ROS All other systems reviewed; all pertinent +/- noted in HPI/Subj Hospitalist Exam General Appearance: NAD, awake alert. negative: ill appearing Eye: anicteric sclera ENT: normocephalic atraumatic Heart: RRR, no murmur, no gallops, no rubs, normal peripheral pulses Respiratory: CTAB, no wheezes, no rales, no ronchi, normal chest expansion, no tachypnea Gastrointestinal: soft, non-tender, non-distended, normal bowel sounds, no guarding, no rigidity Extremities: no cyanosis, no edema Skin: no rashes Neurological: no focal deficits Musculoskeletal: normal tone, normal strength Psychiatric: normal affect, A&O x 3 Hospitalist Results Result Diagrams: 06/25/20 20:37 06/25/20 20:37 Lab results: Laboratory Last Values WBC 9.8 thou/uL (4.8-10.8) 06/25/20 20:37 RBC 4.12 mill/uL (4.20-5.40) L 06/25/20 20:37 Hgb 12.4 g/dL (12.0-16.0) 06/25/20 20:37 Hct 35.6 % (36.0-47.0) L 06/25/20 20:37 MCV 86.5 fL (78.0-98.0) 06/25/20 20: MCH 30.2 pg (27.0-31.0) 06/25/20 20: MCHC 34.9 g/dL (32.0-36.0) 06/25/20 20: RDW 15.0 % (11.5-14.5) H 06/25/20 20: Plt Count 201 thou/uL (130-400) 06/25/20 20:37 MPV 7.0 fL (7.4-10.4) L 06/25/20 20: Neutrophils % 77.0 % (42.0-75.0) H 06/25/20 20: Lymphocytes % 16.5 % (21.0-51.0) L 06/25/20 20: Monocytes % 5.2 % (0.0-10.0) 06/25/20 20: Eosinophils % 0.9 % (0.0-10.0) 06/25/20 20: Basophils % 0.4 % (0.0-1.0) 06/25/20 20: Neutrophils # 7.5 thou/uL (1.40-6.50) H 06/25/20 20: Lymphocytes # 1.6 thou/uL (1.20-3.40) 06/25/20 20:37 Monocytes # 0.5 thou/uL (0.11-0.59) 06/25/20 20: Eosinophils # 0.1 thou/uL (0.0-0.7) 06/25/20 20: Basophils # 0.0 thou/uL (0.0-0.2) 06/25/20 20:37 Sodium 140 mmol/L (136-145) 06/25/20 20:37 Potassium 3.2 mmol/L (3.5-5.1) L 06/25/20 20:37 Chloride 109 mmol/L (98-107) H 06/25/20 20:37 Carbon Dioxide 22 mmol/L (23-31) L 06/25/20 20:37 Anion Gap 12 mmol/L (10-20) 06/25/20 20:37 BUN 14 mg/dL (9.8-20.1) 06/25/20 20:37 Creatinine 0.73 mg/dL (0.6-1.1) 06/25/20 20:37 Estimated GFR (MDRD) 80 06/25/20 20:37 Glucose 121 mg/dL (80-115) H 06/25/20 20:37 Calcium 8.4 mg/dL (7.8-10.44) 06/25/20 20:37 Total Bilirubin 0.3 mg/dL (0.2-1.2) 06/25/20 20:37 AST 26 U/L (5-34) 06/25/20 20:37 ALT 19 U/L (8-55) 06/25/20 20:37 Alkaline Phosphatase 136 U/L (40-110) H 06/25/20 20:37 Troponin I Less than 0.010 ng/mL (< 0.028) 06/25/20 20:37 Serum Total Protein 6.4 g/dL (5.8-8.1) 06/25/20 20:37 Albumin 3.8 g/dL (3.4-4.8) 06/25/20 20:37 Globulin 2.6 g/dL (2.4-3.5) 06/25/20 20:37 Albumin/Globulin Ratio 1.5 g/dL (1.2-2.2) 06/25/20 20:37 Lipase 32 U/L (8-78) 06/25/20 20:37 EKG Status: image reviewed by me, report reviewed by me Additional Comments: 12 lead EKG interpreted by Emergency Department Physician at time of study, No previous EKG available for comparison, Conduction normal, ST, non-specific ST/t changes, T waves normal, [place] normal, Clinical impression:, non-specific EKG, non-specific ST/T changes, No acute process. Rate of 87. Chest x-ray Status: report reviewed by me Additional Comments: IMPRESSION: 1. No evidence of acute cardiopulmonary disease. 2. Chronic interstitial lung disease. Hospitalist H&P A/P (1) Chest pain Code(s): R07.9 - CHEST PAIN, UNSPECIFIED Status: Acute (2) Hypokalemia Code(s): E87.6 - HYPOKALEMIA Status: Acute (3) CAD (coronary artery disease) Code(s): I25.10 - ATHSCL HEART DISEASE OF [place] CORONARY ARTERY W/O ANG PCTRS Status: Chronic Qualifiers: Coronary Disease-Associated Artery/Lesion type: creek artery [place] vs. transplanted heart: creek heart (4) A-fib Code(s): I48.91 - UNSPECIFIED ATRIAL FIBRILLATION Status: Chronic Qualifiers: Atrial fibrillation type: paroxysmal Qualified Code(s): I48.0 - Paroxysmal atrial fibrillation (5) COPD (chronic obstructive pulmonary disease) Status: Chronic Qualifiers: COPD type: unspecified COPD Qualified Code(s): J44.9 - Chronic obstructive pulmonary disease, unspecified (6) GERD (gastroesophageal reflux disease) Code(s): K21.9 - GASTRO-ESOPHAGEAL REFLUX DISEASE WITHOUT ESOPHAGITIS Status: Chronic Qualifiers: Esophagitis presence: without esophagitis Qualified Code(s): K21.9 - G estella-esophageal reflux disease without esophagitis (7) Rheumatoid arthritis Code(s): M06.9 - RHEUMATOID ARTHRITIS, UNSPECIFIED Status: Chronic Qualifiers: Rheumatoid arthritis location: unspecified site Rheumatoid factor presence: unspecified presence Qualified Code(s): M06.9 - Rheumatoid arthritis, unspecified Plan: A patient with recent cardiac stent placement, COPD, paroxysmal atrial fibrillation, GERD and rheumatoid arthritis presents to the hospital via EMS for acute onset of chest pain. EKG nonspecific, no no STEMI. Initial troponin negative. Chest x-ray no acute process. Symptoms had resolved prior to arrival to ED. #Chest pain Heart score 6, Wells PE score 0. Trend troponins, check TSH, FLP, mag level. Received full dose aspirin in ED. Restart home Eliquis and Plavix s/p stent placement (05/23). Consult Dr. Nolen. N.p.o. after midnight. Sublingual nitro as needed chest pain. #Hypokalemia Mild. Presented potassium 3.2 Received 40 mEq in ED. Check mag level. Recheck level in a.m. #CAD Status post stent 05/23 Takes Plavix and Eliquis. #Atrial fibrillation Paroxysmal. EKG normal sinus rhythm. Restart home dose Cardizem Eliquis. #COPD Chronic, stable. Restart home dose Combivent and Ellipta inhalers. #Rheumatoid arthritis Chronic, appears stable. We will hold home dose methotrexate for now. #COVID-19 Diagnosed 02/19. Spent 8 weeks in the hospital. Has residual dyspnea on exertion since diagnosis. SCDs for DVT prophylaxis. No pharmacological DVT prophylaxis. Protonix for GI prophylaxis. CODE STATUS full code. Discussed the case with attending physician, Dr. Montes De Oca, who agrees with plan of care.
[2020-06-25] MEDS ORDERED: Nitroglycerin 0.4 MG TAB (25 Tab Bottle) SL PRN (22:03)
[2020-06-25] MEDS ORDERED: Ondansetron ODT 4 MG TAB PO PRN (22:07)
[2020-06-25] MEDS ORDERED: Ondansetron PF 4 MG/2 ML Vial IVP PRN (22:07)
[2020-06-25] MEDS ORDERED: Acetaminophen 325 MG TAB PO PRN (22:07)
[2020-06-26 00:12] LABS: Troponin I Less than 0.010 ng/mL (< 0.028)
[2020-06-26 02:53] LABS: #Eosinphils 0.1 thou/uL (0.0-0.7); #Lymphocytes 1.6 thou/uL (1.20-3.40); #Monocytes 0.4 thou/uL (0.11-0.59); #Neutrophils 4.7 thou/uL (1.40-6.50); %Basophils 0.2 % (0.0-1.0); %Eosinophils 0.8 % (0.0-10.0); %Lymphocytes 23.2 % (21.0-51.0); %Monocytes 6.6 % (0.0-10.0); %Neutrophils 69.3 % (42.0-75.0); Hemoglobin 12.1 g/dL (12.0-16.0); Mean Corpuscular HGB CONC 34.6 g/dL (32.0-36.0); Mean Corpuscular Volume 86.8 fL (78.0-98.0); Mean Platelet Volume 7.1 fL (7.4-10.4); Platelet Count 200 thou/uL (130-400); RBC Distribution Width 14.8 % (11.5-14.5); Red Blood Cell (RBC) Count 4.02 mill/uL (4.20-5.40); White Blood Cell (WBC) Count 6.8 thou/uL (4.8-10.8)
[2020-06-26 03:16] LABS: Troponin I Less than 0.010 ng/mL (< 0.028)
[2020-06-26 03:21] LABS: Anion Gap 12 mmol/L (10-20); BUN (Urea Nitrogen) 12 mg/dL (9.8-20.1); Calc. Creatinine Clearance 0 mL/min (70-130); Carbon Dioxide 22 mmol/L (23-31); Chloride 111 mmol/L (98-107); Potassium 4.2 mmol/L (3.5-5.1); Sodium 141 mmol/L (136-145)
[2020-06-26 03:22] LABS: Calcium 9.4 mg/dL (7.8-10.44); Cardiac Risk 3.7 (Less than 4.5); Cholesterol 157 mg/dl (< 200 Desired); Glucose 112 mg/dL (80-115); HDL Cholesterol 42 mg/dL (>60 Neg Risk); LDL Cholesterol, Calculated 83 mg/dL; Magnesium 2.1 mg/dL (1.6-2.6); Triglycerides 161 mg/dL (Less than 150)
[2020-06-26 05:21] LABS: SARS-CoV-2 PCR by NAA Not Detected (NotDetected)
--- NOTE | 2020-06-26 07:40 | ULT ---
Sonogram right upper quadrant HISTORY: Upper abdomen pain. FINDINGS: Large shadowing echogenic stone within the gallbladder lumen. Biliary sludge within the dep endent portion. No gallbladder wall thickening or pericholecystic fluid. Common duct is 0.3 cm. Patient was reportedly not tender over the gallbladder fossa at the time of the exam. Liver unremarkable without focal mass or intrahepatic biliary dilatation. No free fluid. IMPRESSION : Cholelithiasis. No evidence of biliary obstruction.
[2020-06-26] MEDS ORDERED: Apixaban 5 MG TAB PO SCH (09:00)
[2020-06-26] MEDS ORDERED: Non-Formulary Item 1 EACH (Fluticasone Furoate [Arnuity Ellipta] 200 MCG Blst.W.Dev) PO SCH (09:00)
[2020-06-26] MEDS: Mometasone 100 MCG/Formoterol 5 MCG 120 PUFF INHALER INH SCH ×2 (10:06→20:17)
[2020-06-26] MEDS: Clopidogrel Bisulfate 75 MG TAB PO SCH (11:41)
[2020-06-26] MEDS ORDERED: Folic Acid 1 MG TAB ONE (11:42)
[2020-06-26] MEDS: Folic Acid 1 MG TAB PO SCH (11:44)
[2020-06-26] MEDS ORDERED: Enoxaparin Sodium 40 MG/0.4 ML SYRINGE SC SCH (15:00)
[2020-06-26] MEDS ORDERED: Enoxaparin Sodium 80 MG/0.8 ML SYRINGE SC SCH (15:00)
[2020-06-26 15:29] VITALS: BMI 24.4
--- NOTE | 2020-06-26 17:28 | PRG ---
DATE OF SERVICE: 06/26/2020 SUBJECTIVE: The patient is awake. She is still having chest discomfort. At the bedside, we ordered a stat EKG and it showed normal sinus rhythm without any acute changes, still waiting for Cardiology consultation. The patient recently had a stent placed. OBJECTIVE: GENERAL: The patient is in mild distress. VITAL SIGNS: Blood pressure is 114/73, pulse is 88, temperature is 98.9, and O2 saturation is 96% on room air. HEAD AND NECK: Normocephalic, atraumatic. NECK: Supple. No JVD. CHEST: Fair bilateral air entry. HEART: S1 and S2, regular. ABDOMEN: Soft and nontender. Bowel sounds present. NEUROLOGIC: Awake, alert, oriented. PSYCH: Normal mood. LABORATORY DATA: Serial troponins 0.01, 0.01, 0.01. ASSESSMENT: 1. Acute chest pain. 2. Hypokalemia, resolved. 3. Coronary artery disease. 4. Gastroesophageal reflux disease. 5. Chronic obstructive pulmonary disease. 6. Rheumatoid arthritis. 7. Atrial fibrillation, paroxysmal. PLAN: 1. Continue with aspirin. 2. Continue with Eliquis and Plavix. The patient had a stent placed on May 23. 3. Awaiting Cardiology consultation and recommendations. Job ID: [id number]
--- NOTE | 2020-06-27 00:17 | CON ---
DATE OF CONSULTATION: 06/26/2020 REASON FOR CONSULTATION: Chest pain. PRIMARY WARP KNITTER HELPER: Dr. Damián Nolen. HISTORY OF PRESENT ILLNESS: Ms. Arango is a very pleasant 69-year-old woman. The patient has a history of coronary disease with recent stent implantation. The patient states that last fall she had COVID. She recovered well from that, but she developed atrial fibrillation associated with that episode of COVID. As part of the evaluation, she underwent stress test which was abnormal. She did not have any chest pain or pressure. She subsequently underwent stress testing which was abnormal and cardiac catheterization revealed a severe mid LAD stenosis and two 50% narrowings. The patient underwent successful stent implantation of that vessel [facility] the [facility] The patient did not have any chest pain prior to this episode. She had silent ischemia. Since then, she has had twinges in her chest off and on before and after this. Today, she actually had severe abdominal pain and then later some discomfort in her chest, which she calls twinges, occasional feels like pain. The worst symptoms were actually abdominal. Those have resolved. She was also found to have gallstones. The patient is resting comfortably now. MEDICATIONS: At home, she was on: 1. Clopidogrel 75 mg a day. 2. Apixaban 5 mg twice a day. 3. Atorvastatin 20 mg a day. 4. Diltiazem 120 mg a day. 5. Methotrexate every 7 days. 6. Zyrtec if needed. SOCIAL HISTORY: No alcohol or tobacco. REVIEW OF SYSTEMS: CONSTITUTIONAL: No significant weight gain or loss. VISION: No changes. HEARING: No changes. PULMONARY: No cough or wheezing. GASTROINTESTINAL: No nausea, vomiting, diarrhea. SKIN: No rashes. NEUROLOGIC: No unilateral weakness or numbness. PSYCHIATRIC: No unusual depression or anxiety. PHYSICAL EXAMINATION: GENERAL: This is a pleasant 69-year-old woman. VITAL SIGNS: Her BMI is 24. Her blood pressure is 122/71, pulse 74 and regular. EYES: Sclerae nonicteric. MOUTH: Mucous membranes moist. NECK: Supple. No lymphadenopathy. LUNGS: Clear. CARDIAC: Normal S1, normal S2. There is no murmur, rub, or gallop. ABDOMEN: Soft and nontender. EXTREMITIES: Warm and dry. No clubbing, cyanosis, or edema. Good peripheral pulses. LABORATORY DATA: Cardiac enzymes are negative. Troponin levels are negative. Serologies negative for COVID. ASSESSMENT: 1. Coronary disease with history of silent ischemia. 2. Atypical chest pain. 3. Recent stent implantation. At this time, it seems unlikely that her pain is cardiac in origin. She did not have any symptoms even when she had a stenosis in her LAD previously. PLAN: 1. Stress test to be done tomorrow. 2. Hold apixaban and give Lovenox until we are certain that no further interventions are needed. 3. Dr. Nolen will resume the patient's cardiac care tomorrow. The patient was found to have gallstones as mentioned as well, although the pain in her chest does not sound like it is related to her gallbladder. She did have abdominal pain earlier in the day. Job ID: [id number]
[2020-06-27] MEDS ORDERED: Enoxaparin Sodium 80 MG/0.8 ML SYRINGE SC SCH (09:00)
[2020-06-27] MEDS ORDERED: Regadenoson 0.4 MG/5 ML SYRINGE ONE (10:16)
[2020-06-27] MEDS: Mometasone 100 MCG/Formoterol 5 MCG 120 PUFF INHALER INH SCH (10:42)
[2020-06-27] MEDS ORDERED: Lorazepam 2 MG/ML VIAL SLOW IVP PRN (11:53)
[2020-06-27] MEDS: Folic Acid 1 MG TAB PO SCH (12:59)
--- NOTE | 2020-06-27 13:01 | PDOC.BPN ---
- Brief Progress Note [id number] Progress
--- NOTE | 2020-06-27 13:25 | PRG ---
DATE OF SERVICE: 06/27/2020 SUBJECTIVE: No new complaints. The patient is still having this chest discomfort and weird feeling in her chest. The patient was seen by Cardiology, stress test is being ordered. OBJECTIVE: GENERAL: The patient is awake, anxious, but not in acute distress. VITAL SIGNS: Blood pressure is , temperature 97.4, respiratory rate is 18, oxygen saturation 98%. HEAD AND NECK: Normocephalic, atraumatic. Neck is supple. No JVD. CHEST: Fair bilateral air entry. ABDOMEN: Soft, nontender. Bowel sounds present. NEUROLOGIC: Awake, alert, oriented x3. PSYCH: Normal mood. EXTREMITIES: No clubbing. No cyanosis. ASSESSMENT AND PLAN: 1. Acute chest pain, rule out acute coronary syndrome. 2. Recent cardiac stent. 3. Hypokalemia, resolved. 4. Chronic obstructive pulmonary disease. 5. Rheumatoid arthritis. 6. Paroxysmal atrial fibrillation. 7. Gallstones, . PLAN: 1. Cardiac stress test today as per Cardiology. 2. Eliquis is being held, and the patient was given Lovenox until certain there is no further intervention by Cardiology. 3. Further management as per Cardiology. Appreciate Cardiology input. Job ID: [id number]
[2020-06-27] MEDS: Clopidogrel Bisulfate 75 MG TAB PO SCH (13:36)
--- NOTE | 2020-06-27 13:54 | NM ---
EXAM: CARDIAC SPECT HISTORY: Chest pain, coronary disease, stent. COPD, atrial fibrillation TECHNIQUE: A myocardial perfusion scan was performed using the single isotope 1 day protocol with ying hnetium 99m sestamibi. [10 mCi] was injected intravenously for the rest exam followed by 30 mCi for the stress study. Pharmacologic stress with Lexiscan was monitored and interpreted by nurse practitioner FINDINGS: Homogeneous tracer distribution is seen in the myocardial segments on stress and rest image s without fixed or reversible defects. Gated SPECT LVEF: 76% Wall motion exam: Normal IMPRESSION: Normal myocardial perfusion scan
--- NOTE | 2020-06-27 15:41 | PDOC.BPN ---
- Brief Progress Note [id number] Discharge summary dictated
[2020-06-27 15:55] VITALS: BP 104/63; TEMP 97.3
[2020-06-27] MEDS ORDERED: Atorvastatin Calcium 40 MG TAB PO SCH (21:00)
--- NOTE | 2020-06-28 03:55 | DIS ---
DATE OF ADMISSION: 06/27/2020 DATE OF DISCHARGE: 06/27/2020 DISCHARGE DIAGNOSES: 1. Acute chest pain, acute coronary syndrome was ruled out. 2. Hypokalemia, replaced. 3. Chronic obstructive pulmonary disease. 4. Rheumatoid arthritis. 5. Paroxysmal atrial fibrillation. 6. Recent cardiac stent. BRIEF HOSPITAL COURSE: Ms. Arango is a 69-year-old female with past medical history of coronary artery disease with cardiac stent on May 23, 2020, atrial fibrillation, COPD, rheumatoid arthritis, and GERD, presented to the emergency room with lower chest pain and epigastric pain. The patient took Tums without relief. The patient reported that the pain gradually went away approximately 10 minutes after the second dose of sublingual nitroglycerin. EKG was unremarkable. Serial troponins unremarkable. Cardiology saw the patient and the patient underwent cardiac stress test, which came back normal. Ultrasound did show gallstones, but LFTs are normal and the patient is tolerating diet without any problems. Today, the patient is feeling better. No chest pain. No abdominal pain. Tolerating diet. The plan is to discharge the patient if it is okay with her pull through hooker. PHYSICAL EXAMINATION: GENERAL: She is awake, alert, does not appear to be in acute distress. VITAL SIGNS: Blood pressure is 140/70, temperature is 97.7, pulse is 83, respiratory rate is 16, and oxygen saturation 100% on room air. HEAD AND NECK: Normocephalic and atraumatic. Neck is supple. No JVD. CHEST: Fair bilateral air entry. HEART: S1, S2. Regular. ABDOMEN: Soft, nontender. Bowel sounds present. NEUROLOGIC: Awake, alert, oriented x3. PSYCH: Normal mood. EXTREMITIES: No clubbing or cyanosis. FINAL DIAGNOSIS: As above. PLAN: 1. The patient to be discharged home if okay with her pull through hooker. 2. The patient to resume her home medications. The patient is on Atorvastatin 20 mg daily. 3. Plavix 75 mg daily. 4. Methotrexate 2.5 mg for seven days. 5. Eliquis 5 mg twice a day. 6. Diltiazem CD 120 mg daily. 7. Fluticasone 200 mcg one inhalation daily. 8. Combivent 1 puff every 6 hours. The patient is discharged in stable condition. ACTIVITY: As tolerated. The patient was instructed to come back to the emergency room if she starts complaining of chest pain, abdominal pain, nausea, or vomiting. The patient to follow with her primary care physician as soon as possible. The patient will be discharged home if okay with Cardiology. Job ID: [id number]
--- NOTE | 2020-06-28 20:45 | STRESS ---
Acquisition Time: 2020-06-27 09:56:10 Total Exercise Time: 00:01:00 Test Indications: CHEST PAIN Medications: Protocol: LEXISCAN Max HR: 123 BPM 80% of Pred: 153 BPM Max BP: 126/068 mmHG Max Work Load: 1.0 METS RESTING ECG: NORMAL SINUS RHTYHM AT 74 BPM SYMPTOMS: DYSPNEA NORMAL BP RESPONSE ECTOPY: NONE ECG STRESS: TRANSIENT NON-SPECIFIC ST SEGMENT CHANGES WITH LEXISCAN INFUSION INTERPRETATION: INDETERMINATE ECG/AWAIT NUCLEAR IMAGES FOR DEFINITIVE DIAGNOSIS Confirmed by Linda SOSA ([id number]) on 06/28/2020 8:45:16 PM Referred By: MD Placido MEANS Confirmed By:Linda SOSA
--- NOTE | 2020-06-28 21:38 | PQF ---
Dear : Stacy Lazaro Date06/28/2020 Please exercise your independent, professional judgment in responding to the clarification form. Clinical indicators are provided on the bottom of this form for your review Can you please further clarify the etiology of chest pain? Is Chest Pain associated with: Please check appropriate box(es): [ / ] Atypical chest pain [ ] Gallstone [ ] GERD [ ] Other diagnosis please specify [ ] Unable to determine Physician Signature: Date/Time: For continuity of documentation, please document condition throughout progress notes and discharge summary. Thank You. To be completed by CDI/Coding staff for physician review: Present Clinical Indicators - Signs / Symptoms / Labs Results and Location in Medical Record [ x ] Acute chest pain, ACS ruled out DS pg.1 [ x ] Presented with lower chest pain and epigastric pain DS pg.1 [ x ] Ultrasound did shows gallstone DS pg.1 [ x ] The patient initially thought it was related to acid reflux H and P pg.1 [ x ] Coronary disease with hx of silent ischemia Consult pg.2 [ x ] Atypical chest pain Consult pg.2 Present Risk Factors Results and Location in Medical Record [ x ] 69 yeas old H and P pg.1 [ x ] AFIB H and P pg.1 [ x ] GERD H and P pg.1 [ x ] CAD H and P pg.1 [ x ] COPD H and P pg.1 [ x ] Former smoker H and P pg.2 Present Treatments Results and Location in Medical Record [ x ] Cardiology Consult Dr. Patel 06/27 [ x ] IV fluids MAR [ x ] Aspirin 325mg IV MAR [ x ] Nitroglycerin 0.4SL MAR [ x ] Plavix 75mg PO MAR CDS/Mule Packer Signature: Jeevan Saldana Phone #: ext [phone] Date 06/28/2020 This is a permanent part of the Medical Record [facility]
== END 2020-06-27 17:00 | disposition home or self-care (01) | DRG 313 ==
LOC: ERS 20:23 → ERHOLD 21:44 → 3SE 06-26 15:03 → OBSVTOIN 06-27 11:40
PROVIDERS: ADMIT Internal Medicine; ATTEND Internal Medicine
DX: R07.89 Other chest pain (principal); E87.6 Hypokalemia; Z20.822 Contact with and (suspected) exposure to COVID-19; M06.9 Rheumatoid arthritis, unspecified; I48.0 Paroxysmal atrial fibrillation; K80.80 Other cholelithiasis without obstruction; E78.00 Pure hypercholesterolemia, unspecified; I25.10 Atherosclerotic heart disease of native coronary artery without angina pectoris; K21.9 Gastro-esophageal reflux disease without esophagitis; Z95.5 Presence of coronary angioplasty implant and graft; Z87.891 Personal history of nicotine dependence
CPT/HCPCS: 36415; 71045; 76705; 78452; 80048; 80053; 80061; 83690; 83735; 84443; 84484; 85025; 87635; 93005; 93017; 94640; 96372; A9500; G0378; J1650; J2060; J2785; J7620; U0003; U0005

== ENCOUNTER 2020-08-02 23:52 | Emergency (ER) | payer BC, MEDICARE ==
[2020-08-03 00:32] LABS: #Eosinphils 0.1 thou/uL (0.0-0.7); #Lymphocytes 1.5 thou/uL (1.20-3.40); #Monocytes 0.5 thou/uL (0.11-0.59); %Eosinophils 1.5 % (0.0-10.0); %Lymphocytes 37.3 % (21.0-51.0); %Monocytes 11.2 % (0.0-10.0); Hemoglobin 12.9 g/dL (12.0-16.0); Mean Corpuscular HGB CONC 35.4 g/dL (32.0-36.0); Mean Corpuscular Hemoglobin 30.6 pg (27.0-31.0); Mean Corpuscular Volume 86.3 fL (78.0-98.0); Mean Platelet Volume 7.9 fL (7.4-10.4); Platelet Count 174 thou/uL (130-400); RBC Distribution Width 14.1 % (11.5-14.5); Red Blood Cell (RBC) Count 4.23 mill/uL (4.20-5.40)
[2020-08-03 00:56] LABS: ALT (SGPT) 14 U/L (8-55); AST (SGOT) 14 U/L (5-34); Albumin 4.2 g/dL (3.4-4.8); Alkaline Phosphatase 105 U/L (40-110); Anion Gap 12 mmol/L (10-20); BUN (Urea Nitrogen) 17 mg/dL (9.8-20.1); Bilirubin, Total 0.6 mg/dL (0.2-1.2); Calc. Creatinine Clearance 0 mL/min (70-130); Calcium 9.1 mg/dL (7.8-10.44); Carbon Dioxide 23 mmol/L (23-31); Chloride 109 mmol/L (98-107); Globulin 2.8 g/dL (2.4-3.5); Glucose 152 mg/dL (80-115); Potassium 3.4 mmol/L (3.5-5.1); Sodium 141 mmol/L (136-145)
== END 2020-08-03 01:59 | disposition home or self-care (01) ==
LOC: ERS 23:52
DX: I48.91 Unspecified atrial fibrillation (principal); M06.9 Rheumatoid arthritis, unspecified; J44.9 Chronic obstructive pulmonary disease, unspecified; Z87.891 Personal history of nicotine dependence; Z79.899 Other long term (current) drug therapy
CPT/HCPCS: 71045; 80053; 83880; 84484; 85025; 93005

== ENCOUNTER 2021-05-28 13:47 | Outpatient (CLI) | payer MEDICARE | END 2021-05-28 13:48 | disposition home or self-care (01) | LOC: RAD 13:47 | PROVIDERS: ATTEND Internal Medicine Critical Care Medicine | DX: R06.00 Dyspnea, unspecified (principal) | CPT/HCPCS: 71046 ==

== ENCOUNTER 2022-05-28 10:51 | Outpatient (CLI) | payer MEDICARE | END 2022-05-28 10:52 | disposition home or self-care (01) | LOC: RAD 10:51 | PROVIDERS: ATTEND Internal Medicine Critical Care Medicine | DX: R06.00 Dyspnea, unspecified (principal); J44.9 Chronic obstructive pulmonary disease, unspecified | CPT/HCPCS: 71046 ==

== ENCOUNTER 2023-07-05 11:12 | Outpatient (CLI) | payer MEDICARE | END 2023-07-05 11:13 | disposition home or self-care (01) | LOC: RAD 11:12 | PROVIDERS: ATTEND Internal Medicine Critical Care Medicine | DX: R06.00 Dyspnea, unspecified (principal); J92.9 Pleural plaque without asbestos; I70.0 Atherosclerosis of aorta; J98.4 Other disorders of lung; I28.8 Other diseases of pulmonary vessels | CPT/HCPCS: 71046 ==